=== PATIENT | female | born 1930 | race Caucasian/White ===

== ENCOUNTER 2017-04-02 15:18 | Observation (INO) ==
[2017-04-02] MEDS ORDERED: methylPREDNISolone 125 MG/2 ML VIAL IVP ONE (15:41)
[2017-04-02] MEDS ORDERED: Albuterol 2.5 MG/3 ML NEBULIZER IH ONE (15:42)
[2017-04-02 16:21] LABS: Hematocrit 35.2 % (35.3-44.9); Hemoglobin 11.3 g/dL (11.5-15.4); Mean Corpuscular HGB Conc 32.1 g/dL (31.6-35.5); Mean Corpuscular Hemoglobin 31.3 pg (28.0-33.3); Mean Corpuscular Volume 97.5 fL (83.0-100.0); Mean Platelet Volume 11.4 fL (9.4-12.4); Platelet Count 186 K/mcL (140-400); Red Blood Count 3.61 M/mcL (3.82-4.97); Red Cell Distribution Width 13.3 % (11.5-14.5)
--- NOTE | 2017-04-02 16:22 | Emergency Department Note ---
Disposition Clinical Impression: Dyspnea on exertion, Cough, Hypoxia Congestive heart failure Qualifiers: Congestive heart failure type: unspecified congestive heart failure type Congestive heart failure chronicity: unspecified congestive heart failure chronicity Qualified Code(s): I50.9 - Heart failure, unspecified Pneumonia Qualifiers: Pneumonia type: due to unspecified organism Laterality: left Lung location: lower lobe of lung Qualified Code(s): J18.1 - Lobar pneumonia, unspecified organism Disposition: Admitted As Inpatient Condition: Good Referrals: Lianet De La Rosa DO [Primary Care Provider] - Forms: ED Satisfaction Letter Time of Disposition: 20:10 SOB HPI - General Chief Complaint: ED Shortness of Breath/Dyspnea Stated Complaint: JOHN Time Seen by Provider: 04/02/17 15:30 Source: patient Mode of arrival: ambulatory Limitations: no limitations Nursing Notes Reviewed: Yes Vital Signs Reviewed: Yes - History of Present Illness Patient presents emergency room complaining of shortness of breath. She has had these symptoms on and off for the last several days. She was seen by an outside provider and they are concerned about her being fluid overloaded. Recommend she come to the emergency room. Patient has known congestive heart failure as well as multiple other medical issues. She denies any changes in medication, trauma, injuries. Denies any chest pain fevers chills nausea vomiting or diarrhea. Denies headache or vision change. Main complaint this time is that the patient has intermittent shortness of breath and swelling. Pt Subjective Complaint: shortness of breath, cough Onset (ago): day(s) Context: other Severity: moderate Consistency/Duration: gradually worsening Improves with: oxygen, rest, upright position Worsens with: lying flat, exertion, movement Known history of: COPD, congestive heart failure Associated symptoms: Reports: cough, orthopnea Treatment prior to arrival: oxygen Cough present: Yes Cough Description: Voluntary Cough Frequency: Intermittent Sputum production: No - Related Data Home Medications Medication Instructions Recorded Confirmed Albuterol Sulfate [Proair 2 puff IH Q6H 09/02/15 07/20/16 Respiclick] Aspirin 81 mg PO DAILY 09/02/15 07/20/16 Budesonide/Formoterol 80/4.5 1 puff IH BID 09/02/15 07/20/16 [Symbicort 80/4.5] Docusate [Colace] 100 mg PO DAILY 09/02/15 07/20/16 Escitalopram [Lexapro] 10 mg PO DAILY 09/02/15 07/20/16 Handicap Placard 1 each .ROUTE AD 09/02/15 07/20/16 Loratadine [Claritin] 10 mg PO DAILY 09/02/15 07/20/16 Saline Nasal [place] [[place] Nasal 0 ml NS AD 09/02/15 07/20/16 [place]] Warfarin [Coumadin] 2.5 mg PO DAILY 09/02/15 07/20/16 Bumetanide [Bumex] 1 mg PO BID 09/03/15 07/20/16 Carvedilol [Coreg] 6.25 mg PO BIDWM 09/03/15 07/20/16 Levalbuterol Neb [Xopenex] 1 aerosol IH Q6H 09/03/15 07/20/16 Valsartan [Diovan] 40 mg PO DAILY 09/03/15 07/20/16 Previous Rx's Medication Instructions Recorded Ferrous Sulfate 325 mg PO DAILY #30 tablet 10/08/15 Nystatin Cream [Mycostatin Cream] 1 appl TP BID #1 tube 07/06/16 Folic Acid 1 mg PO DAILY #90 tablet 09/16/16 Carbamide Peroxide 5 - 10 drop RIGHT EAR BID 4 Days 12/03/16 Allergies Allergy/AdvReac Type Severity Reaction Status Date / Time lisinopril Allergy Unknown Rash Verified 09/25/15 11:20 TERRELL Inhibitors Allergy Rash Verified 09/25/15 11:19 albuterol Allergy Rash Verified 09/25/15 11:21 unknown Allergy See Uncoded 07/09/15 19:37 Comments All systems ED: reviewed and negative except as stated. Constitutional: Denies: fever, chills ENT ED: Denies: ear pain Cardiovascular: Reports: dyspnea on exertion, orthopnea, edema. Denies: chest pain, palpitations Respiratory: Reports: cough, dyspnea. Denies: wheezes Gastrointestinal: Denies: abdominal pain, nausea, vomiting, diarrhea Genitourinary: Denies: urgency, dysuria, frequency Musculoskeletal: Denies: back pain, neck pain Neurological: Denies: headache, weakness Allergic/Immunologic: Denies: facial swelling Past Medical History - Past Medical History Attestation: Yes The following information was validated with the patient. Source: patient Medical history: Reports: atrial fibrillation, CHF, COPD, hypertension, malignancy, other Surgical history: Reports: cataract Psychiatric history: Reports: no psych history - Social History Smoking Status: Never smoker Smokeless Tobacco Status: No Alcohol use: Reports: none Drug use: Reports: none Physical Exam - General Limitations: no limitations General appearance: alert - Neck Neck exam: Present: normal inspection, full ROM, trachea midline. Absent: meningismus, lymphadenopathy - Chest Chest inspection: Present: normal inspection, symmetric chest wall rise. Absent : tenderness - Respiratory Respiratory exam: Present: normal lung sounds bilaterally. Absent: respiratory distress, wheezes, stridor, accessory muscle use - Cardiovascular Cardiovascular exam: Present: regular rate, normal rhythm, normal heart sounds - Abdominal Exam Abdominal exam: Present: soft, Non-Tender, normal bowel sounds. Absent: tenderness, distention, guarding, rebound, rigidity, pulsatile mass - Extremities Exam Extremities exam: Present: normal inspection, full ROM, normal capillary refill , pedal edema. Absent: tenderness, calf tenderness - Back Exam Back exam: Present: normal inspection, full ROM - Neurological Exam Neurological exam: Present: alert, oriented X3, CN II-XII intact, normal gait - Skin Skin exam: Present: warm, dry, intact, normal color Course Course Narrative: Patient seen and examined the time of arrival. See history of present illness. 86-year-old female presents here today with cough and increased work of breathing. She has a known CHF. There concern about fluid overload or possible pneumonia. Patient denies any fevers or chills nausea vomiting or diarrhea. Denies chest pain headache or vision change. Her main complaint is intermittent shortness of breath. Patient has noticed that she needed more oxygen at home. Physical exam and vital signs reviewed. She is intermittently hypoxic when she converses here. She is on her normal home oxygen at this time. Otherwise her vital signs appear to be stable. Patient is answering questions appropriately oropharynx is patent trach is midline there is no stridor no trismus. She has clear lungs bilaterally her heart is regular but not tachycardic. Abdomen is soft nontender nondistended with no guarding or rigidity. Patient was all 4 extremities with purpose she has mild pitting edema in the bilateral lower extremities with no redness swelling warmth or tenderness. Patient does have good palpable DP and PT pulses. Patient on physical exam is concerning for possible fluid overload even though focally her lungs do not do not sound wet. She does have a nonproductive cough that was present while is in the room evaluating her. Patient is concerning for possible pulmonary congestion, bronchitis, pneumonia and increased oxygen demand at this time. She was conversationally dyspneic and did become hypoxic even with oxygen on. Patient will have chest x-ray EKG labs including troponin and BNP. Single dose of Lasix will be given at this time. She is not focally presenting like she is septic at this point. Patient is clinically stable. Disposition pending workup and treatment course. - Reevaluation(s) Reevaluation #1: Patient has a mildly elevated white blood cell count. Hemoglobin is stable. Restoril as appeared within normal limits. She does have an elevated BNP today. Chest x-ray does not show any acute signs of pulmonary edema or consolidation. The patient's symptoms as well as her discomfort and hypoxia during my evaluation now CT imaging of the chest to make sure there is not an interstitial disease of his x-ray. CT imaging or this time. Patient I also discussed the admission process which I recommend after the workup is completed. She is comfortable with this plan. Disposition will be admission the hospital after the imaging studies are completed Time: 18:01 Reevaluation #2: CT angiogram will does not show any acute signs of pulmonary emboli. Patient does have what appears to be interstitial tree-in-bud formation left lower lobe of the lung. This is consistent with pneumonia. This accounts for the elevated white blood cell count as well as respiratory issues and hypoxia. I for the patient these findings ordered blood cultures first dose antibiotics and will get the patient minutes to the hospital at this time Time: 20:10 Reevaluation #3: Patient discussed with the hospitalist Dr. lockhart.no other srecommendations at this time. pt stable and ready for admission. Time: 20:31 Vital Signs Temperature 98.2 F 04/02/17 15:20 Pulse Rate 76 04/02/17 15:20 Respiratory Rate 20 04/02/17 15:20 Blood Pressure 174/56 04/02/17 15:20 O2 Sat by Pulse Oximetry 97 04/02/17 15:20 Temperature 98.2 F 04/02/17 15:20 Pulse Rate 89 04/02/17 19:37 Respiratory Rate 20 04/02/17 19:37 Blood Pressure 165/74 04/02/17 18:29 O2 Sat by Pulse Oximetry 96 04/02/17 19:37 Oxygen Delivery Oxygen Delivery Nasal Cannula Shortness of Breath/Dyspnea - [facility] Narrative Medical decision making narrative: COPD, congestive heart failure, nonproductive cough, pneumonia - Medical Records Medical records reviewed: Yes I reviewed the patient's medical records. - Lab Data Lab results reviewed: Yes I reviewed the patient's lab results. Result diagrams: 04/02/17 16:13 04/02/17 16:13 Lab Results 04/02/17 04/02/17 04/02/17 Range/Units 16:13 16:13 16:13 WBC 15.2 H (4.3-11.1) K/mcL RBC 3.61 L (3.82-4.97) M/mcL Hgb 11.3 L (11.5-15.4) g/dL Hct 35.2 L (35.3-44.9) % MCV 97.5 (83.0-100.0) fL MCH 31.3 (28.0-33.3) pg MCHC 32.1 (31.6-35.5) g/dL RDW 13.3 (11.5-14.5) % Plt Count 186 (140-400) K/mcL MPV 11.4 (9.4-12.4) fL Seg Neutrophils % 66.0 % Band Neutrophils % 3.0 (0-4) % Lymphocytes % 21.0 % Monocytes % 9.0 % Basophils % 1.0 % Neutrophils # 10.5 H (1.6-8.9) K/mcL Lymphocytes # 3.2 (0.6-4.6) K/mcL Monocytes # 1.4 H (0.0-1.3) K/mcL Basophils # 0.2 (0.0-0.2) K/mcL Reactive Lymphocytes Present A (Not Present) Smudge Cells Present A (Not Present) Platelet Estimate Normal (Normal) Sodium 137 (136-145) mEq/L Potassium 4.3 (3.5-4.5) mEq/L Chloride 95 L (98-109) mEq/L Carbon Dioxide 33 H (19-29) mEq/L BUN 19 (7-20) mg/dL Creatinine 0.85 (0.57-1.11) mg/dL Est GFR ( Amer) > 60 (> 60) Est GFR (Non-Af Amer) > 60 (> 60) BUN/Creatinine Ratio 22 (6-26) Glucose 101 H (70-99) mg/dL Calculated Osmolality 286 (280-300) Lactic Acid 1.0 (0.5-2.2) mmol/L Calcium 9.3 (8.6-10.8) mg/dL Troponin I (0-0.03) ng/mL B-Natriuretic Peptide (0-100) pg/mL Urine Color (Yellow) Urine Clarity (Clear) Urine pH (5.0-8.0) pH Units Ur Specific [place] (1.010-1.025) Urine Protein (Neg-Trace) mg/dL Urine Glucose (UA) (Normal) mg/dL Urine Ketones (Negative) mg/dL Urine Blood (Negative) Urine Nitrite (Negative) Urine Bilirubin (Negative) Urine Urobilinogen (Normal) mg/dL Ur Leukocyte Esterase (Negative) Urine Microscopic RBC (0-3) per hpf Urine Microscopic WBC (0-3) per hpf Ur Squamous Epith Cells (None-Few) per lpf Urine Bacteria (None-Few) per hpf Hyaline Casts (None-Few) per lpf Ur Culture Indicated? (NO) 04/02/17 04/02/17 04/02/17 Range/Units 16:13 16:13 16:43 WBC (4.3-11.1) K/mcL RBC (3.82-4.97) M/mcL Hgb (11.5-15.4) g/dL Hct (35.3-44.9) % MCV (83.0-100.0) fL MCH (28.0-33.3) pg MCHC (31.6-35.5) g/dL RDW (11.5-14.5) % Plt Count (140-400) K/mcL MPV (9.4-12.4) fL Seg Neutrophils % % Band Neutrophils % (0-4) % Lymphocytes % % Monocytes % % Basophils % % Neutrophils # (1.6-8.9) K/mcL Lymphocytes # (0.6-4.6) K/mcL Monocytes # (0.0-1.3) K/mcL Basophils # (0.0-0.2) K/mcL Reactive Lymphocytes (Not Present) Smudge Cells (Not Present) Platelet Estimate (Normal) Sodium (136-145) mEq/L Potassium (3.5-4.5) mEq/L Chloride (98-109) mEq/L Carbon Dioxide (19-29) mEq/L BUN (7-20) mg/dL Creatinine (0.57-1.11) mg/dL Est GFR ( Amer) (> 60) Est GFR (Non-Af Amer) (> 60) BUN/Creatinine Ratio (6-26) Glucose (70-99) mg/dL Calculated Osmolality (280-300) Lactic Acid (0.5-2.2) mmol/L Calcium (8.6-10.8) mg/dL Troponin I 0.00 (0-0.03) ng/mL B-Natriuretic Peptide 169 H (0-100) pg/mL Urine Color Yellow (Yellow) Urine Clarity Clear (Clear) Urine pH 7.0 (5.0-8.0) pH Units Ur Specific [place] 1.011 (1.010-1.025) Urine Protein Negative (Neg-Trace) mg/dL Urine Glucose (UA) Normal (Normal) mg/dL Urine Ketones Negative (Negative) mg/dL Urine Blood Moderate H (Negative) Urine Nitrite Negative (Negative) Urine Bilirubin Negative (Negative) Urine Urobilinogen Normal (Normal) mg/dL Ur Leukocyte Esterase Small H (Negative) Urine Microscopic RBC 15-30 H (0-3) per hpf Urine Microscopic WBC 3-5 H (0-3) per hpf Ur Squamous Epith Cells Moderate H (None-Few) per lpf Urine Bacteria None Seen (None-Few) per hpf Hyaline Casts None Seen (None-Few) per lpf Ur Culture Indicated? YES A (NO) - Radiology Data Radiology results reviewed: Yes I reviewed the patient's radiology results. Chest x-ray is negative for acute infiltrate or pulmonary congestion. CT imaging does show tree-in-bud formation left lower lobe along the pulmonary emboli see detailed documentation by the radiologist - EKG Data EKG attestation: Yes I reviewed and interpreted this EKG. EKG shows normal: Reports: sinus rhythm, axis, intervals, QRS complexes, ST-T waves Rate: Reports: normal Rhythm: Reports: NSR, PAC's [place]/QRS: Reports: normal When compared to previous EKG there are: no significant changes Interpretation: Reports: no acute changes, unchanged when compared to prior tracing (date) (07/06/16)
[2017-04-02 16:41] LABS: BUN/Creatinine Ratio 22 (6-26); Basophils # 0.2 K/mcL (0.0-0.2); Blood Urea Nitrogen 19 mg/dL (7-20); Calcium 9.3 mg/dL (8.6-10.8); Carbon Dioxide 33 mEq/L (19-29); Chloride 95 mEq/L (98-109); Glucose 101 mg/dL (70-99); Lymphocytes # 3.2 K/mcL (0.6-4.6); Monocytes # 1.4 K/mcL (0.0-1.3); Neutrophils # 10.5 K/mcL (1.6-8.9); Osmolality,Calculated 286 (280-300); Platelet Estimate Normal (Normal); Potassium 4.3 mEq/L (3.5-4.5); Reactive Lymphocytes Present (Not Present); Smudge Cells Present (Not Present); Sodium 137 mEq/L (136-145); eGFR For African Americans > 60 (> 60); eGFR For Non-African Americans > 60 (> 60)
[2017-04-02 16:50] LABS: Bilirubin,Urine Negative (Negative); Blood,Urine Moderate (Negative); Clarity,Urine Clear (Clear); Color,Urine Yellow (Yellow); Glucose,Urine (UA) Normal (Normal); Ketones,Urine Negative (Negative); Leukocyte Esterase,Urine Small (Negative); Nitrite,Urine Negative (Negative); Protein,Urine Negative (Neg-Trace); Specific Gravity,Urine 1.011 (1.010-1.025); Urobilinogen,Urine Normal (Normal)
[2017-04-02 16:52] LABS: Bacteria,Urine None Seen per hpf (None-Few); Hyaline Casts,Urine None Seen per lpf (None-Few); RBC,Urine 15-30 per hpf (0-3); Squamous Epithelial Cell,Urine Moderate per lpf (None-Few)
[2017-04-02] MEDS ORDERED: Furosemide 40 MG in 0.9 % Sodium Chloride 50 ML IVPB ONE (17:57)
[2017-04-02] MEDS ORDERED: Levofloxacin 750 MG/150 ML 750 MG/150 ML BAG IVPB ONE (19:56)
[2017-04-02] MEDS ORDERED: Acetaminophen 325 MG TABLET PO PRN (21:44)
[2017-04-02] MEDS ORDERED: Naloxone 0.4 MG/ML INJ IVP PRN (21:44)
[2017-04-02] MEDS ORDERED: Ipratropium/Albuterol Neb 3 ML IH PRN (21:47)
--- NOTE | 2017-04-02 21:53 | Internal Med History&Physical ---
Date of Encounter: 04/02/17 Time of Encounter: 21:30 Assessment and Plan (1) Acute and chronic respiratory failure Current visit: Yes Status: Acute Patient presented with increased shortness of breath in the setting of known pneumonia superimposed on chronic COPD with home baseline of 2 L oxygen. Plan: - Treat underlying pneumonia. - Patient started on Levaquin for community acquired pneumonia Qualifiers: Respiratory failure complication: unspecified whether with hypoxia or hypercapnia Qualified Code(s): J96.20 - Acute and chronic respiratory failure , unspecified whether with hypoxia or hypercapnia (2) Pneumonia Current visit: Yes Status: Acute Patient presented with progressive shortness of breath from her baseline, cough , productive green sputum. Chest x-ray did not demonstrate any findings of consolidation. Chest CTA demonstrated tree-in-bud pattern or left lower lobe. WBC of 15 which correlates with clinical presentation of respiratory infection. Plan: - Continue treatment with Levaquin for antibiotic coverage - Continue breathing treatments - Continue baseline 2 L nasal cannula oxygen and adjust as necessary. Qualifiers: Pneumonia type: due to unspecified organism Laterality: left Lung location: lower lobe of lung Qualified Code(s): J18.1 - Lobar pneumonia, unspecified organism (3) CLL (chronic lymphocytic leukemia) Current visit: No Status: Chronic Known history of CLL, stable. (4) Congestive heart failure Current visit: Yes Status: Acute 86-year-old female with last echocardiogram demonstrating LVEF of 50-55%. With severe diastolic dysfunction. - Clinically euvolemic. - Cardiac diet - Strict intake and output monitoring, daily weights - 2 g sodium restriction Qualifiers: Congestive heart failure type: unspecified congestive heart failure type Congestive heart failure chronicity: unspecified congestive heart failure chronicity Qualified Code(s): I50.9 - Heart failure, unspecified (5) Atrial fibrillation Current visit: Yes Status: Acute Patient has a baseline nature fibrillation, apparent on EKG. Clinical examination correlates. Plan: - Continue rate control with Coreg - Obtain PT/INR - Continue anticoagulation with warfarin therapy: Range INR of 2-3 Qualifiers: Qualified Code(s): I48.91 - Unspecified atrial fibrillation Internal Medicine - H&P: HPI Chief complaint: sob Admitted From: Emergency Dept History of present illness: Ms. Sheppard is a 86 year old female known history of COPD, heart failure, CLL, hypertension, hyperlipidemia, coronary artery disease, atrial fibrillation presented with shortness of breath. This Sheppard said that she started having shortness of breath and a productive cough starting on Tuesday which progressively got worse until Tuesday when she went to her primary care provider for evaluation. She is provided Tessalon Perles and Flonase without any resolution of her symptoms. She became more short of breath as the days went on more so with activity, her sputum turned green in color and she overall felt lethargic with decreased appetite. She uses her inhalers as prescribed and has not had an increase in use. She has been taking her medications as prescribed. 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 She denies any associated fevers, chills, diaphoresis. She has been receiving treatment for her CLL. Past Med Surg Social Fam HX - Past Medical History Medical history: atrial fibrillation, CHF, COPD, hypertension, malignancy, other Psychiatric history: no psych history - Past Surgical History Surgical History: cataract - Social History Smoking Status: Never smoker Smokeless Tobacco Status: No Alcohol use: none Drug use: none - Family History Mother Race: Living Status: Hx Family Cardiac Disorders: Yes (Heart disease, heart failure) Father Race: Living Status: Hx Family Cardiac Disorders: Yes (MA) Hx Family Cancer: Yes (CLL) Internal Medicine - H&P: Meds Albuterol Sulfate [Proair [place]ic[place]] 2 puff IH Q6H 09/02/15 [History] Aspirin 81 mg PO DAILY 09/02/15 [History] Budesonide/Formoterol 80/4.5 [Symbicort 80/4.5] 1 puff IH BID 09/02/15 [History ] Docusate [Colace] 100 mg PO DAILY 09/02/15 [History] Escitalopram [Lexapro] 10 mg PO DAILY 09/02/15 [History] Handicap Placard 1 each .ROUTE AD 09/02/15 [History] Loratadine [Claritin] 10 mg PO DAILY 09/02/15 [History] Saline Nasal [place] [[place] Nasal [place]] 0 ml NS AD 09/02/15 [History] Warfarin [Coumadin] 2.5 mg PO DAILY 09/02/15 [History] Bumetanide [Bumex] 1 mg PO BID 09/03/15 [History] Carvedilol [Coreg] 3.125 mg PO BIDWM 09/03/15 [History] Levalbuterol Neb [Xopenex] 1 aerosol IH Q6H 09/03/15 [History] Valsartan [Diovan] 40 mg PO DAILY 09/03/15 [History] Ferrous Sulfate 325 mg PO DAILY #30 tablet 10/08/15 [Rx] Nystatin Cream [Mycostatin Cream] 1 appl TP BID #1 tube 07/06/16 [Rx] Folic Acid 1 mg PO DAILY #90 tablet 09/16/16 [Rx] Carbamide Peroxide 5 - 10 drop RIGHT EAR BID 4 Days 12/03/16 [Rx] Budesonide/Formoterol 80/4.5 [Symbicort] 2 puff IH BID 04/02/17 [History] Multivit-Min/FA/Lutein/Zeaxant [Icaps Mv Tablet] 1 each PO DAILY 04/02/17 [ History] Omeprazole [PriLOSEC] 20 mg PO DAILY 04/02/17 [History] Allergies lisinopril Allergy (Unknown, Verified 09/25/15 11:20) Rash TERRELL Inhibitors Allergy (Verified 09/25/15 11:19) Rash albuterol Allergy (Verified 09/25/15 11:21) Rash unknown Allergy (Uncoded 07/09/15 19:37) See Comments All Systems PM: A 10-system review of systems was performed and is negative for pertinent findings except as documented above in the HPI. - Constitutional Constitutional: lethargy, malaise, no chills, no fever(s), no night sweats - EENT Eyes: no change in vision, no discharge, no pain, no photophobia Ears: no ear discharge, no ear pain, no tinnitus Nose, mouth and throat: post-nasal drip, no dysphagia, no nasal discharge, no neck pain, no sore throat - Cardiovascular Cardiovascular ROS IM: no chest pain, no diaphoresis, no dyspnea, no lightheadedness, no palpitations, no syncope - Respiratory Respiratory: cough, dyspnea, chest congestion, excessive phlegm production, change in phlegm color, no wheezing - Gastrointestinal Gastrointestinal: no abdominal pain, no diarrhea, no hematemesis, no hematochezia, no melena, no nausea, no vomiting - Genitourinary Genitourinary: no change in urinary stream, no dysuria, no flank pain, no hematuria - Musculoskeletal Musculoskeletal ROS IM: no numbness, no tingling - Integumentary Integumentary IM: no rash, no unusual bruising - Neurological Neurological ROS: no confusion, no convulsions, no focal weakness, no numbness, no tingling, no tremor(s) - Hematologic/Lymphatic Hematologic/Lymphatic: no easy bruising - Constitutional Vitals: Temp Pulse Resp BP Pulse Ox 98.2 F 79 18 145/73 95 04/02/17 15:20 04/02/17 20:48 04/02/17 21:10 04/02/17 21:10 04/02/17 20:48 Exam: General: Patient alert, awake, oriented 3, interactive, in no acute distress HEENT: Normocephalic, atraumatic, pupils equal reactive to light, nasal cavity patent and open septum median position, oral mucosa moist, uvula midline, neck supple trachea midline no palpable lymphadenopathy, no thyromegaly. Chest: Symmetric bilateral correlating with respiratory effort, effort nonlabored. Cardiac: Irregularly irregular heart rate and rhythm no bruits appreciated bilateral carotids, Radial pulses 2+ bilateral, posterior tibial and dorsal pedal pulses 2+ bilateral. Respiratory: Diminished breath sounds with inspiratory crackles lower left lung base, all other lung rhodes are clear to auscultation. Abdomen: Soft, nontender, positive bowel sounds, no palpable masses appreciated on examination Extremities: Symmetric bilateral, bilateral lower extremities trace edema, patient moving all 4 extremities spontaneously. Neurologic: No focal deficits appreciated on examination. Face symmetric, muscle strength symmetric bilateral upper and lower extremities. Internal Med - H&P Results - Labs CBC & Chem 7: 04/03/17 04:24 04/02/17 16:13
[2017-04-02] MEDS ORDERED: *HR* Heparin 5,000 UNIT/ML VIAL SQ SCH (22:00)
--- NOTE | 2017-04-02 22:27 | Event Note ---
Date of Encounter: 04/02/17 Time of Encounter: 22:27 Patient and examined with biomedical engineering aide. Acquired pneumonia. Casimiroaquin. She is on 2L of oxygen which is our baseline. She told me that she would like to be full code.
[2017-04-02] MEDS: Budesonide/Formoterol 80/4.5 MDI IH SCH (22:50)
[2017-04-03 04:47] LABS: Basophils % 0.1 %; Hematocrit 34.6 % (35.3-44.9); Hemoglobin 11.4 g/dL (11.5-15.4); Immature Granulocytes % 0.3 % (0-4); Lymphocytes # 7.6 K/mcL (0.6-4.6); Lymphocytes % 51.5 %; Mean Corpuscular HGB Conc 32.9 g/dL (31.6-35.5); Mean Corpuscular Hemoglobin 31.8 pg (28.0-33.3); Mean Corpuscular Volume 96.6 fL (83.0-100.0); Mean Platelet Volume 11.9 fL (9.4-12.4); Monocytes # 1.3 K/mcL (0.0-1.3); Neutrophils # 5.8 K/mcL (1.6-8.9); Platelet Count 191 K/mcL (140-400); Red Blood Count 3.58 M/mcL (3.82-4.97); Red Cell Distribution Width 13.2 % (11.5-14.5); Segmented Neutrophils % 39.1 %
[2017-04-03 04:52] LABS: INR 2.6; Prothrombin Time 29.2 Seconds (9.4-12.1)
[2017-04-03 05:05] LABS: BUN/Creatinine Ratio 23 (6-26); Blood Urea Nitrogen 20 mg/dL (7-20); Carbon Dioxide 34 mEq/L (19-29); Chloride 97 mEq/L (98-109); Glucose 177 mg/dL (70-99); Osmolality,Calculated 291 (280-300); Potassium 4.1 mEq/L (3.5-4.5); Sodium 137 mEq/L (136-145); eGFR For African Americans > 60 (> 60); eGFR For Non-African Americans > 60 (> 60)
[2017-04-03 05:06] LABS: Platelet Estimate Normal (Normal); Reactive Lymphocytes Present (Not Present)
[2017-04-03] MEDS: Aspirin 81 MG TAB.CHEW PO SCH (08:00)
[2017-04-03] MEDS: Valsartan 80 MG TABLET PO SCH (08:01)
[2017-04-03] MEDS: Bumetanide 1 MG TABLET PO SCH ×2 (08:01→19:54)
[2017-04-03] MEDS ORDERED: Pantoprazole 40 MG VIAL IVP SCH (09:00)
[2017-04-03] MEDS: Budesonide/Formoterol 80/4.5 MDI IH SCH ×2 (10:48→20:18)
--- NOTE | 2017-04-03 15:31 | Internal Med Progress Note ---
<Guillermo Boyd - Last Filed: 04/03/17 15:56> Date of Encounter: 04/03/17 Time of Encounter: 11:20 - Assessment and plan (1) Community acquired pneumonia Current Visit: Yes Status: Acute Assessment and plan: Given the patients clinical presentation and imaging findings I would agree that this is a community acquired pneumonia. she is at high risk for poor outcome given her advanced age and her chronic lung disease. I calculate her PSI to be 96/ Class 4. Given the appearence of the CT I agree that Levofloxacin would be a good choice of antibiotics. We will continue. Currently on 2L of O2. currently dose not meet SIRS criteria. Blood and urine cultures were sent. I will order sputum as well. Continue to monitor closely. (2) Congestive heart failure Current Visit: Yes Status: Chronic Assessment and plan: Patient has severe Diastolic dysfunction. May be related to age? However given her granulomas in the lung would consider infiltrative disorder such as Sarcoidosis. Will check a Vitamin D 1, 25 as macrophages from granulomas in sarcoid can over produce Vit D 1,25. Check an TERRELL. Patient has low AG. Amyloidosis? check SPEP. If patient develops worsening HF or heart block may consider Cardiac MRI in the future. currently the patient is euvolemic. Continue home dose of bumex monitor I's O's closely. Low salt diet. Blood pressure control. Will consider adding aldactone. however this will need to be follow closely as an outpatient. Qualifiers: Congestive heart failure type: diastolic Qualified Code(s): I50.30 - Unspecified diastolic (congestive) heart failure (3) Current use of fci anticoagulation Current Visit: Yes Status: Acute Assessment and plan: currently on Coumadin. She was placed on coumadin on admission. We will need to follow INR closely as this can sometimes affect the therapeutic levels. (4) COPD (chronic obstructive pulmonary disease) Current Visit: Yes Status: Acute Assessment and plan: currently dose not seem to be in exacerbation clinically. However dose have some mild wheezing. Add Xopenex. Qualifiers: Qualified Code(s): J44.9 - Chronic obstructive pulmonary disease, unspecified (5) Obesity Current Visit: Yes Status: Suspected Assessment and plan: Suspected. Current BMI recorded as 16. I believe this to be in error and will have event staff weigh the patient again. Qualifiers: Qualified Code(s): E66.9 - Obesity, unspecified (6) CLL (chronic lymphocytic leukemia) Current Visit: No Status: Chronic Assessment and plan: stable. (7) Acute and chronic respiratory failure Current Visit: Yes Status: Acute Assessment and plan: stable. on Home dose of 2L. Qualifiers: Respiratory failure complication: unspecified whether with hypoxia or hypercapnia Qualified Code(s): J96.20 - Acute and chronic respiratory failure , unspecified whether with hypoxia or hypercapnia (8) Atrial fibrillation Current Visit: Yes Status: Acute Assessment and plan: currently rate controlled. continue coumadin Qualifiers: Qualified Code(s): I48.91 - Unspecified atrial fibrillation (9) Abnormal urinalysis Current Visit: Yes Status: Acute Assessment and plan: suggestive of UTI. However appears contaminated. follow up with cultures. On Levofloxacin for CAP. (10) DVT prophylaxis Current Visit: Yes Status: Acute Assessment and plan: Coumadin - Subjective Interval history: Today Mrs. Sheppard states that she is feeling some better. She denies having any fever or chills. She dose admit to malaise. She denies any sick contacts.. She denies any pets at home. She states that she still has some exertional dyspna. She has a productive cough ( yellow/ Green) and some wheezing. She has no further complaints or concerns at this time. Her Son and Daughter are present during the interview and they confirm the above. - Constitutional Vitals: Temp Pulse Resp BP Pulse Ox 98.2 F 82 17 142/67 94 04/03/17 13:08 04/03/17 13:08 04/03/17 13:08 04/03/17 13:08 04/03/17 13:08 Exam: Gen.: This is a very pleasant well-developed well-nourished 86-year-old female she is alert and orientated to person place time and situation. She is lying in bed appears to be comfortable and in no acute distress at this time. HEENT: The head is normocephalic and atraumatic. Pupils are equally round. Moist mucous membranes. Trachea midline. Neck is supple without masses thyromegaly. Heart: Irregular irregular rate of approximately 80 while examining the patient. There is no murmurs rubs or gallops. No JVD. No heave or thrill with palpation of the precordium. Lungs: She has a normal effort of breathing. Normal resonance Ms. of the chest wall bilaterally. She does have some mild wheezes and rhonchi in the right upper and mid lung rhodes. Abdomen: Obese, soft, nondistended, nontender to palpation. Bowel sounds positive. Extremities: No clubbing cyanosis or edema. Integument: No rashes or lesions. Internal Medicine: Result - Labs CBC & Chem 7: 04/03/17 04:24 04/03/17 04:24 Labs: Short CBC 04/03/17 Range/Units 04:24 WBC 14.8 H (4.3-11.1) K/mcL Hgb 11.4 L (11.5-15.4) g/dL Hct 34.6 L (35.3-44.9) % Plt Count 191 (140-400) K/mcL Neutrophils # 5.8 (1.6-8.9) K/mcL BMP 04/03/17 04:24 Sodium 137 Potassium 4.1 Chloride 97 L Carbon Dioxide 34 H BUN 20 Creatinine 0.86 Glucose 177 H Calcium 9.0 - ABG Interpretation ABG results: PT/INR, D-dimer PT 29.2 Seconds (9.4-12.1) H 04/03/17 04:24 Consult Discharge Plan - Plan Referrals: Lianet De La Rosa DO [Primary Care Provider] - <Ezra Tabor - Last Filed: 04/03/17 19:27> Date of Encounter: 04/03/17 - Constitutional Vitals: Temp Pulse Resp BP Pulse Ox 98.7 F 81 16 145/65 95 04/03/17 18:55 04/03/17 18:55 04/03/17 18:55 04/03/17 18:55 04/03/17 18:55 Internal Medicine: Result - Labs CBC & Chem 7: 04/03/17 04:24 04/03/17 04:24 Labs: Short CBC 04/03/17 Range/Units 04:24 WBC 14.8 H (4.3-11.1) K/mcL Hgb 11.4 L (11.5-15.4) g/dL Hct 34.6 L (35.3-44.9) % Plt Count 191 (140-400) K/mcL Neutrophils # 5.8 (1.6-8.9) K/mcL BMP 04/03/17 04:24 Sodium 137 Potassium 4.1 Chloride 97 L Carbon Dioxide 34 H BUN 20 Creatinine 0.86 Glucose 177 H Calcium 9.0 - ABG Interpretation ABG results: PT/INR, D-dimer PT 29.2 Seconds (9.4-12.1) H 04/03/17 04:24 - Attending Attestation I examined this patient and my medical decision-making was reviewed with the Resident Physician, Dr. Boyd. I agree with the documented findings, disposition and treatment plan as described except to the extent set forth below. we will monitor INR daily and adjust Coumadin being mindful of the potential interaction with Levaquin.
[2017-04-03] MEDS: Levalbuterol Neb 0.63 MG/3 ML IH SCH ×2 (16:20→20:18)
[2017-04-03] MEDS ORDERED: Warfarin perPT PO PRN (18:00)
[2017-04-03] MEDS ORDERED: *HR* Warfarin 5 MG TABLET PO SCH (18:00)
[2017-04-03] MEDS: Loratadine 10 MG TABLET PO SCH (19:54)
[2017-04-04] MEDS: Levalbuterol Neb 0.63 MG/3 ML IH SCH ×3 (03:34→16:09)
[2017-04-04 04:00] LABS: Basophils % 0.3 %; Eosinophils # 0.1 K/mcL (0.0-0.6); Eosinophils % 0.4 %; Hematocrit 34.7 % (35.3-44.9); INR 2.1; Immature Granulocytes % 0.5 % (0-4); Lymphocytes % 54.7 %; Mean Corpuscular HGB Conc 31.7 g/dL (31.6-35.5); Mean Corpuscular Hemoglobin 30.9 pg (28.0-33.3); Mean Corpuscular Volume 97.5 fL (83.0-100.0); Mean Platelet Volume 11.8 fL (9.4-12.4); Monocytes # 1.7 K/mcL (0.0-1.3); Monocytes % 11.4 %; Neutrophils # 4.8 K/mcL (1.6-8.9); Platelet Count 176 K/mcL (140-400); Prothrombin Time 23.1 Seconds (9.4-12.1); Red Blood Count 3.56 M/mcL (3.82-4.97); Red Cell Distribution Width 13.3 % (11.5-14.5); Segmented Neutrophils % 32.7 %
[2017-04-04 04:11] LABS: BUN/Creatinine Ratio 23 (6-26); Blood Urea Nitrogen 21 mg/dL (7-20); Calcium 8.9 mg/dL (8.6-10.8); Carbon Dioxide 34 mEq/L (19-29); Chloride 98 mEq/L (98-109); Glucose 117 mg/dL (70-99); Osmolality,Calculated 294 (280-300); Potassium 3.8 mEq/L (3.5-4.5); Sodium 140 mEq/L (136-145); eGFR For African Americans > 60 (> 60); eGFR For Non-African Americans 59 (> 60)
[2017-04-04 04:28] LABS: Platelet Estimate Normal (Normal); Reactive Lymphocytes Present (Not Present)
[2017-04-04] MEDS: Bumetanide 1 MG TABLET PO SCH (07:54)
[2017-04-04] MEDS: Loratadine 10 MG TABLET PO SCH (07:54)
[2017-04-04] MEDS: Valsartan 80 MG TABLET PO SCH (07:54)
[2017-04-04] MEDS: Aspirin 81 MG TAB.CHEW PO SCH (07:55)
--- NOTE | 2017-04-04 08:42 | Discharge Summary ---
<Pepe Eubanks - Last Filed: 04/04/17 17:52> Date of Encounter: 04/04/17 Time of Encounter: 08:41 - Discharge Diagnosis (1) Community acquired pneumonia Priority: Primary Status: Acute Comments: She is at high risk for poor outcome given her advanced age and her chronic lung disease. I calculate her PSI to be 96/ Class 4. Continue oral Levofloxacin for 1 week upon discharge. Adjust Coumadin dose secondary to Levaquin use Currently on 2L of O2. Continue incentive spirometry Blood, sputum, and urine cultures pending Patient evaluated by PT/OT. Recommend return to home with no home health at this time. (2) Anemia Priority: Secondary Status: Chronic Comments: Stable. Continue to monitor Qualifiers: Anemia type: unspecified type Qualified Code(s): D64.9 - Anemia, unspecified (3) CLL (chronic lymphocytic leukemia) Priority: Secondary Status: Chronic Comments: Continue to monitor outpatient. (4) Congestive heart failure Priority: Secondary Status: Acute Comments: Patient has severe Diastolic dysfunction. However given her granulomas in the lung would consider infiltrative disorder such as Sarcoidosis. Will check a Vitamin D 1, 25 as macrophages from granulomas in sarcoid can over produce Vit D 1,25. Check an TERRELL. Patient has low AG. Amyloidosis? check SPEP. If patient develops worsening HF or heart block may consider Cardiac MRI in the future. currently the patient is euvolemic. Continue home dose of bumex monitor I's O's closely. Low salt diet. Blood pressure control. Will consider adding aldactone. however this will need to be follow closely as an outpatient. Qualifiers: Congestive heart failure type: diastolic Congestive heart failure chronicity: chronic Qualified Code(s): I50.32 - Chronic diastolic (congestive ) heart failure (5) Hypoxia Priority: Primary Status: Acute Comments: Currently on 2L of O2 at home. Continue albuterol (6) Acute and chronic respiratory failure Priority: Primary Status: Acute Comments: Currently on 2L of O2. Continue antibiotics, albuterol, and incentive spirometry Qualifiers: Respiratory failure complication: hypoxia and hypercapnia Qualified Code(s) : J96.21 - Acute and chronic respiratory failure with hypoxia; J96.22 - Acute and chronic respiratory failure with hypercapnia (7) Current use of long-term anticoagulation Priority: Primary Status: Acute Comments: currently on Coumadin. She is also on Levaquin for 1 week. Follow INR closely as this can affect the therapeutic levels. (8) COPD (chronic obstructive pulmonary disease) Priority: Primary Status: Chronic Comments: currently dose not seem to be in exacerbation clinically. However dose have some mild wheezing. Added Xopenex. Qualifiers: COPD type: COPD with acute lower respiratory infection Qualified Code(s): J44.0 - Chronic obstructive pulmonary disease with acute lower respiratory infection (9) Obesity, morbid, BMI 40.0-49.9 Priority: Secondary Status: Acute Comments: Discussed diet modification and exercise (10) DVT prophylaxis Priority: Primary Status: Acute Comments: Decrease Coumadin dose or 1 week secondary to current Levaquin use Patient seen and examined, plan discussed with and agreed upon with Dr. Tabor - Discharge Medications Prescriptions: levoFLOXacin [Levaquin] 750 mg PO DAILY #7 tablet Warfarin [Coumadin] 5 mg PO MOWE 7 Days Home Medications: Aspirin 81 mg PO DAILY 09/02/15 [History] Docusate [Colace] 100 mg PO DAILY 09/02/15 [History] Escitalopram [Lexapro] 10 mg PO DAILY 09/02/15 [History] Loratadine [Claritin] 10 mg PO DAILY 09/02/15 [History] Warfarin [Coumadin] 2.5 mg PO FR 09/02/15 [History] Bumetanide [Bumex] 1 mg PO BID 09/03/15 [History] Carvedilol [Coreg] 3.125 mg PO BIDWM 09/03/15 [History] Levalbuterol Neb [Xopenex] 1 aerosol IH Q6H 09/03/15 [History] Valsartan [Diovan] 40 mg PO DAILY 09/03/15 [History] Ferrous Sulfate 325 mg PO DAILY #30 tablet 10/08/15 [Rx] Folic Acid 1 mg PO DAILY #90 tablet 09/16/16 [Rx] Budesonide/Formoterol 80/4.5 [Symbicort] 2 puff IH BID 04/02/17 [History] Multivit-Min/FA/Lutein/Zeaxant [Icaps Mv Tablet] 1 each PO DAILY 04/02/17 [ History] Omeprazole [PriLOSEC] 20 mg PO DAILY 04/02/17 [History] Benzonatate [Tessalon] 100 mg PO TID PRN 04/03/17 [History] Fluticasone Propionate Nasal [Flonase] 2 spr NS DAILY PRN 04/03/17 [History] Warfarin [Coumadin] 5 mg PO SUTUTHSA 04/03/17 [History] Warfarin [Coumadin] 5 mg PO MOWE 7 Days 04/04/17 [Rx] levoFLOXacin [Levaquin] 750 mg PO DAILY #7 tablet 04/04/17 [Rx] Allergies/Adverse Reactions: Allergies lisinopril Adverse Reaction (Unknown, Verified 04/03/17 15:05) Rash TERRELL Inhibitors Adverse Reaction (Verified 04/03/17 15:05) Rash albuterol Adverse Reaction (Verified 04/03/17 15:05) Palpitations Date of admission: 04/02/17 20:55 Primary care physician: Lianet De La Rosa DO Discharging clinician: Ezra Tabor Anticipated date of discharge: 04/04/17 - Patient Status Disposition: Home, Self-Care Condition: Good Functional capacity at discharge: independent ambulation Overall status at discharge: patient is progressing back to baseline - Discharge Instructions Instructions: Levofloxacin (By mouth), Bacterial Pneumonia (DC) Follow Up With: Lianet De La Rosa DO [Primary Care Provider] - 04/11/17 1:00 pm - Diet and Activity Activity: increase activity as tolerated Diet: low salt diet Hospital course: Ms. Sheppard is a 86 year old female known history of COPD, diastolic heart failure , CLL, hypertension, hyperlipidemia, coronary artery disease, and atrial fibrillation who presented with shortness of breath. Shortness of breath and a productive cough starting on Tuesday which progressively got worse until Tuesday when she went to her primary care provider for evaluation. She is provided Tessalon Perles and Flonase without any resolution of her symptoms. She became more short of breath as the days went on more so with activity, her sputum turned green in color and she overall felt lethargic with decreased appetite. She uses her inhalers as prescribed and has not had an increase in use. She has been taking her medications as prescribed. 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 She denies any associated fevers, chills , diaphoresis. She has been receiving treatment for her CLL. Chest x-ray did not demonstrate any findings of consolidation. Chest CTA demonstrated tree-in- bud pattern or left lower lobe. WBC of 15 which correlates with clinical presentation of respiratory infection. Patient started on Levaquin for community acquired pneumonia, DuoNeb's, and incentive spirometry was encouraged. Continue baseline 2 L nasal cannula oxygen and adjust as necessary. Patient was much improved on hospital day 3 and reported she is back to baseline with significantly decreased shortness of breath. Patient discharged with by mouth Levaquin and home dose of Coumadin was decreased. patient instructed to follow up with PCP in 1 week for a repeat INR level - Time Spent with Patient Total time spent providing and/or coordinating discharge services: - Constitutional Vitals: Temp Pulse Resp BP Pulse Ox 97.7 F 79 16 164/78 96 04/04/17 08:39 04/04/17 08:39 04/04/17 08:39 04/04/17 08:39 04/04/17 08:39 General appearance: Present: cooperative, A&O X 3, morbidly obese, pleasant, no acute distress - Head Head exam: Present: atraumatic, normocephalic - Eye Eye exam: Present: PERRL, conjuntiva pink, sclera anicteric Pupils: Present: PERRL - ENT ENT exam: Present: normal oropharynx Additional comments: Oxygen via nasal cannula - Neck Neck exam general surgery: Present: supple, trachea midline. Absent: lymphadenopathy - Respiratory Respiratory exam: Present: wheezes. Absent: accessory muscle use, decreased breath sounds, CTAB, prolonged expiratory phase, rales, respiratory distress, rhonchi Additional comments: Mild wheezing - Cardiovascular Cardiovascular exam: Present: RRR, +S1, +S2. Absent: diastolic murmur, gallop, rubs, systolic murmur - GI/Abdominal GI/Abdominal exam: Present: normal bowel sounds, soft, no peritoneal signs. Absent: distended, tenderness - Extremities Exam Extremities exam: Present: warm, radial pulses palpable and symetrical. Absent : calf tenderness, cyanotic, pedal edema - Neurological Exam Neurological exam: Present: CN II-XII intact, oriented X3, no focal deficits. Absent: pronater drift, facial droop, speech deficit - Skin Skin exam: Present: dry, intact <Ezra Tabor - Last Filed: 04/04/17 19:01> Date of Encounter: 04/04/17 Date of admission: 04/02/17 20:55 Primary care physician: Lianet De La Rosa DO Consults: 04/04/17 09:17 Consult to Physical Therapy [CONS] Stat Comment: Evaluate, develop and implement POC Reason for Consult: D/c planning OT [Consult to Occupational Therapy] [CONS] Stat Comment: Evaluate, develop and implement POC Reason for Consult: D/c planning - Patient Status Functional capacity at discharge: independent ambulation Overall status at discharge: patient is progressing back to baseline - Diet and Activity Activity: increase activity as tolerated Diet: low salt diet Hospital course: Ms. Sheppard is a 86 year old female - Time Spent with Patient Total time spent providing and/or coordinating discharge services: - Constitutional Vitals: Temp Pulse Resp BP Pulse Ox 98.2 F 72 16 125/71 98 04/04/17 15:09 04/04/17 15:09 04/04/17 16:09 04/04/17 15:09 04/04/17 16:09 - Attending Attestation I examined this patient and my medical decision-making was reviewed with the Resident Physician, Dr Eubanks. I agree with the documented findings, disposition and treatment plan as described except to the extent set forth below. the patient is back to baseline. She is currently using 2 L by nasal cannula oxygen supplementation, which is her home dose. She tolerates oral intake. Her pneumonia is improving with Levaquin. She appears euvolemic on physical exam. She will be discharged home with Close follow-up with PCP.
[2017-04-04] MEDS: Budesonide/Formoterol 80/4.5 MDI IH SCH (11:28)
--- NOTE | 2017-04-04 12:05 | Electrocardiograph Report ---
[place] [id number] Test Date: 2017-04-02 Pat Name: Ana Lilia Sheppard Department: 104 Room: 3B32 Gender: F Butcher Head: : 1930 Requested By: Eliseo Sandoval Order Number: [id number] Reading MD: Adan Irvin MD Measurements Intervals [place] Rate: 81 P: 29 AR: 144 QRS: 31 QRSD: 102 T: 42 QT: 379 QTc: 417 Interpretive Statements SINUS RHYTHM WITH SINUS ARRHYTHMIA BASELINE ARTIFACT Electronically Signed On 04-04-2017 12:04:17 EDT by Adan Irvin MD
[2017-04-04 15:10] VITALS: BP 125/71
[2017-04-04] MEDS ORDERED: *HR* Warfarin 7.5 MG TABLET PO SCH (18:00)
[2017-04-04] MEDS ORDERED: Levofloxacin 750 MG/150 ML 750 MG/150 ML BAG IVPB SCH (20:00)
[2017-04-06 17:25] LABS: Alpha 2 Globulin (PEP) 1.02 g/dL (0.48-1.05); Beta Globulin (PEP) 0.77 g/dL (0.48-1.10)
[2017-04-08 08:04] LABS: IFE Reflexed NOT DONE
[2017-04-08] MEDS ORDERED: *HR* Warfarin 2.5 MG TABLET PO SCH (18:00)
== END 2017-04-04 18:16 | disposition home or self-care (01) ==
LOC: EMEROO 15:18 → 3BNU 15:18 → SUATTDRO 20:55 → 3BNU 21:15
PROVIDERS: ADMIT Internal Medicine Endocrinology, Diabetes & Metabolism; ATTEND Internal Medicine

== ENCOUNTER 2019-11-11 15:57 | Observation (INO) ==
[2019-11-11 16:42] LABS: Prothrombin Time 34.1 Seconds (9.4-12.1)
[2019-11-11] MEDS ORDERED: Ondansetron 4 MG/2 ML VIAL IVP PRN (17:41)
[2019-11-11] MEDS ORDERED: Naloxone 0.4 MG/ML INJ IVP PRN (17:41)
[2019-11-11 18:39] LABS: Basophils # 0.1 K/mcL (0.0-0.2); Basophils % 0.4 %; Eosinophils # 0.1 K/mcL (0.0-0.6); Eosinophils % 0.7 %; Hematocrit 38.2 % (35.3-44.9); Hemoglobin 12.2 g/dL (11.5-15.4); Immature Granulocytes % 0.3 % (0-4); Lymphocytes % 69.7 %; Mean Corpuscular HGB Conc 31.9 g/dL (31.6-35.5); Mean Corpuscular Hemoglobin 33.4 pg (28.0-33.3); Mean Corpuscular Volume 104.7 fL (83.0-100.0); Mean Platelet Volume 11.6 fL (9.4-12.4); Monocytes # 0.8 K/mcL (0.0-1.3); Monocytes % 4.1 %; Neutrophils # 4.6 K/mcL (1.6-8.9); Platelet Count 177 K/mcL (140-400); Red Blood Count 3.65 M/mcL (3.82-4.97); Red Cell Distribution Width 14.8 % (11.5-14.5); Segmented Neutrophils % 24.8 %; White Blood Count 18.6 K/mcL (4.3-11.1)
[2019-11-11 18:58] LABS: BUN/Creatinine Ratio 19 (6-26); Blood Urea Nitrogen 17 mg/dL (8-23); Calcium 9.2 mg/dL (8.6-10.3); Carbon Dioxide 32 mEq/L (23-29); Chloride 99 mEq/L (98-107); Glucose 129 mg/dL (70-105); Osmolality,Calculated 289 (280-300); Potassium 3.8 mEq/L (3.5-5.1); Sodium 138 mEq/L (136-145); eGFR For African Americans > 60 (> 60); eGFR For Non-African Americans 59 (> 60)
[2019-11-11 19:03] LABS: Platelet Estimate Normal (Normal); Reactive Lymphocytes Present (Not Present)
[2019-11-11] MEDS: carvediloL 6.25 MG TABLET PO SCH (21:25)
[2019-11-11] MEDS: Acetaminophen 325 MG TABLET PO PRN (21:56)
[2019-11-11] MEDS: Bumetanide 1 MG TABLET PO SCH (21:56)
[2019-11-11] MEDS: Budesonide/Formoterol 160/4.5 1 PUFF INH IH SCH (22:02)
[2019-11-11] MEDS: Levalbuterol Neb 0.63 MG/3 ML IH PRN (22:02)
[2019-11-12 00:44] LABS: Bilirubin,Urine Negative (Negative); Blood,Urine Trace (Negative); Color,Urine Yellow (Yellow); Glucose,Urine (UA) Normal (Normal); Ketones,Urine Negative (Negative); Leukocyte Esterase,Urine Negative (Negative); Nitrite,Urine Negative (Negative); Protein,Urine Negative (Neg-Trace); Specific Gravity,Urine 1.021 (1.010-1.025); Urobilinogen,Urine Normal (Normal)
[2019-11-12 00:45] LABS: Bacteria,Urine None Seen per hpf (None-Few); Hyaline Casts,Urine None Seen per lpf (None-Few); RBC,Urine 0-3 per hpf (0-3); Squamous Epithelial Cell,Urine Many per lpf (None-Few)
[2019-11-12 00:47] LABS: Clarity,Urine Clear (Clear)
[2019-11-12 01:29] LABS: Hematocrit 34.3 % (35.3-44.9); Hemoglobin 11.4 g/dL (11.5-15.4)
[2019-11-12 01:32] LABS: Prothrombin Time 34.3 Seconds (9.4-12.1)
[2019-11-12 01:47] LABS: BUN/Creatinine Ratio 19 (6-26); Blood Urea Nitrogen 18 mg/dL (8-23); Calcium 8.7 mg/dL (8.6-10.3); Carbon Dioxide 34 mEq/L (23-29); Chloride 99 mEq/L (98-107); Glucose 147 mg/dL (70-105); Osmolality,Calculated 291 (280-300); Potassium 3.7 mEq/L (3.5-5.1); Sodium 138 mEq/L (136-145); eGFR For African Americans > 60 (> 60); eGFR For Non-African Americans 55 (> 60)
[2019-11-12 06:16] LABS: Hematocrit 34.5 % (35.3-44.9); Mean Corpuscular HGB Conc 31.9 g/dL (31.6-35.5); Mean Corpuscular Hemoglobin 33.1 pg (28.0-33.3); Mean Corpuscular Volume 103.9 fL (83.0-100.0); Mean Platelet Volume 11.5 fL (9.4-12.4); Platelet Count 167 K/mcL (140-400); Red Blood Count 3.32 M/mcL (3.82-4.97); Red Cell Distribution Width 14.8 % (11.5-14.5); White Blood Count 17.5 K/mcL (4.3-11.1)
[2019-11-12 08:09] LABS: Hematocrit 34.7 % (35.3-44.9); Hemoglobin 11.1 g/dL (11.5-15.4)
[2019-11-12] MEDS: carvediloL 6.25 MG TABLET PO SCH ×2 (09:01→16:16)
[2019-11-12] MEDS: *HR* OxyCODONE Immed Rel 5 MG TABLET PO PRN ×2 (09:01→16:16)
[2019-11-12] MEDS: Folic Acid 1 MG TABLET PO SCH (09:02)
[2019-11-12] MEDS: Bumetanide 1 MG TABLET PO SCH ×2 (09:02→19:49)
[2019-11-12] MEDS: Loratadine 10 MG TABLET PO SCH (09:02)
[2019-11-12] MEDS: Aspirin 81 MG TAB.CHEW PO SCH (09:02)
[2019-11-12] MEDS: Budesonide/Formoterol 160/4.5 1 PUFF INH IH SCH ×2 (10:29→22:16)
[2019-11-12] MEDS: Levalbuterol Neb 0.63 MG/3 ML IH PRN ×2 (10:31→22:16)
[2019-11-12] MEDS: Acetaminophen 325 MG TABLET PO PRN (13:32)
[2019-11-12 14:35] LABS: Hematocrit 35.6 % (35.3-44.9); Hemoglobin 11.9 g/dL (11.5-15.4)
[2019-11-12] MEDS ORDERED: Warfarin perPT PO PRN (18:00)
[2019-11-12] MEDS ORDERED: *HR* Warfarin 5 MG TABLET PO ONE (18:00)
[2019-11-13] MEDS: *HR* OxyCODONE Immed Rel 5 MG TABLET PO PRN ×2 (01:23→14:54)
[2019-11-13] MEDS: Acetaminophen 325 MG TABLET PO PRN ×2 (04:53→19:17)
[2019-11-13 05:41] LABS: Hemoglobin 11.4 g/dL (11.5-15.4); Mean Corpuscular HGB Conc 32.6 g/dL (31.6-35.5); Mean Corpuscular Hemoglobin 33.5 pg (28.0-33.3); Mean Corpuscular Volume 102.9 fL (83.0-100.0); Mean Platelet Volume 12.1 fL (9.4-12.4); Platelet Count 162 K/mcL (140-400); Red Cell Distribution Width 14.7 % (11.5-14.5); White Blood Count 18.6 K/mcL (4.3-11.1)
[2019-11-13 05:58] LABS: BUN/Creatinine Ratio 23 (6-26); Blood Urea Nitrogen 20 mg/dL (8-23); Calcium 8.7 mg/dL (8.6-10.3); Carbon Dioxide 33 mEq/L (23-29); Chloride 96 mEq/L (98-107); Glucose 129 mg/dL (70-105); Osmolality,Calculated 286 (280-300); Potassium 3.8 mEq/L (3.5-5.1); Sodium 136 mEq/L (136-145); eGFR For African Americans > 60 (> 60); eGFR For Non-African Americans > 60 (> 60)
[2019-11-13 06:12] LABS: INR 2.4; Prothrombin Time 27.8 Seconds (9.4-12.1)
[2019-11-13] MEDS: Budesonide/Formoterol 160/4.5 1 PUFF INH IH SCH ×2 (07:17→21:43)
[2019-11-13] MEDS: Levalbuterol Neb 0.63 MG/3 ML IH PRN ×2 (07:20→21:43)
[2019-11-13] MEDS: Bumetanide 1 MG TABLET PO SCH ×2 (08:21→21:32)
[2019-11-13] MEDS: Folic Acid 1 MG TABLET PO SCH (08:22)
[2019-11-13] MEDS: Loratadine 10 MG TABLET PO SCH (08:22)
[2019-11-13] MEDS: carvediloL 6.25 MG TABLET PO SCH ×2 (08:23→17:56)
[2019-11-13] MEDS: Aspirin 81 MG TAB.CHEW PO SCH (08:23)
[2019-11-13] MEDS ORDERED: *HR* Warfarin 7.5 MG TABLET PO ONE (18:00)
[2019-11-13] MEDS ORDERED: *HR* Warfarin 5 MG TABLET PO ONE (18:00)
[2019-11-14 06:30] LABS: INR 2.5; Prothrombin Time 28.2 Seconds (9.4-12.1)
[2019-11-14] MEDS: Budesonide/Formoterol 160/4.5 1 PUFF INH IH SCH (08:12)
[2019-11-14] MEDS: Aspirin 81 MG TAB.CHEW PO SCH (08:43)
[2019-11-14] MEDS: Folic Acid 1 MG TABLET PO SCH (08:43)
[2019-11-14] MEDS: carvediloL 6.25 MG TABLET PO SCH (08:43)
[2019-11-14] MEDS: Bumetanide 1 MG TABLET PO SCH (08:43)
[2019-11-14] MEDS: Loratadine 10 MG TABLET PO SCH (08:43)
[2019-11-14] MEDS: Acetaminophen 325 MG TABLET PO PRN (08:45)
[2019-11-14 10:40] VITALS: BP 127/76
[2019-11-14] MEDS: *HR* OxyCODONE Immed Rel 5 MG TABLET PO PRN (10:56)
== END 2019-11-14 13:30 ==
LOC: EMEROOARM 15:57 → 3NENU 15:57
PROVIDERS: ADMIT Pharmacist; ATTEND Pharmacist

== ENCOUNTER 2019-11-26 18:56 | Inpatient (IN) ==
[2019-11-26] MEDS ORDERED: Naloxone 0.4 MG/ML INJ IVP PRN (20:10)
[2019-11-26] MEDS ORDERED: Furosemide 40 MG/4 ML VIAL IVP ONE (21:00)
[2019-11-26 21:14] LABS: INR 1.2; Prothrombin Time 13.5 Seconds (9.4-12.1)
[2019-11-27 04:01] LABS: Basophils # 0.1 K/mcL (0.0-0.2); Basophils % 0.4 %; Eosinophils # 0.2 K/mcL (0.0-0.6); Eosinophils % 1.7 %; Hemoglobin 9.4 g/dL (11.5-15.4); Immature Granulocytes % 0.5 % (0-4); Lymphocytes # 8.3 K/mcL (0.6-4.6); Lymphocytes % 71.5 %; Mean Corpuscular HGB Conc 31.3 g/dL (31.6-35.5); Mean Corpuscular Hemoglobin 33.2 pg (28.0-33.3); Mean Platelet Volume 11.9 fL (9.4-12.4); Monocytes # 0.7 K/mcL (0.0-1.3); Monocytes % 5.9 %; Neutrophils # 2.3 K/mcL (1.6-8.9); Platelet Count 194 K/mcL (140-400); Red Blood Count 2.83 M/mcL (3.82-4.97); Red Cell Distribution Width 15.3 % (11.5-14.5); White Blood Count 11.6 K/mcL (4.3-11.1)
[2019-11-27 04:17] LABS: BUN/Creatinine Ratio 32 (6-26); Blood Urea Nitrogen 30 mg/dL (8-23); Calcium 8.8 mg/dL (8.6-10.3); Carbon Dioxide 33 mEq/L (23-29); Chloride 99 mEq/L (98-107); Glucose 110 mg/dL (70-105); Osmolality,Calculated 293 (280-300); Potassium 4.3 mEq/L (3.5-5.1); Sodium 138 mEq/L (136-145); eGFR For African Americans > 60 (> 60); eGFR For Non-African Americans 57 (> 60)
[2019-11-27 04:18] LABS: INR 1.2; Prothrombin Time 13.5 Seconds (9.4-12.1)
[2019-11-27 05:12] LABS: Reactive Lymphocytes Present (Not Present); Smudge Cells Present (Not Present)
[2019-11-27 05:13] LABS: Anisocytosis 1+ (Not Present); Platelet Estimate Normal (Normal)
[2019-11-27] MEDS ORDERED: *HR* Heparin 5,000 UNIT/ML VIAL IVP ONE (07:24)
[2019-11-27] MEDS ORDERED: *HR* Heparin 5,000 UNIT/ML VIAL IVP PRN ×2 (07:24)
[2019-11-27] MEDS ORDERED: Ipratropium/Albuterol Neb 3 ML IH PRN (07:24)
[2019-11-27] MEDS ORDERED: Perflutren Lipid Microsphere 1.3 ML in 0.9 % Sodium Chloride 8.7 ML IVP ONE (07:33)
[2019-11-27] MEDS ORDERED: Bumetanide 1 MG TABLET PO ONE (10:11)
[2019-11-27] MEDS ORDERED: Dextrose Gel 15 GM/37.5 ML TUBE PO PRN ×2 (10:12)
[2019-11-27] MEDS ORDERED: D5% in Water 1,000 ML IVC PRN (10:12)
[2019-11-27] MEDS ORDERED: *HR* Dextrose 50 % in Water (Syg) 50 ML SYRINGE IVP PRN (10:12)
[2019-11-27 11:19] LABS: Hematocrit 31.3 % (35.3-44.9); Mean Corpuscular HGB Conc 31.9 g/dL (31.6-35.5); Mean Corpuscular Hemoglobin 33.8 pg (28.0-33.3); Mean Corpuscular Volume 105.7 fL (83.0-100.0); Mean Platelet Volume 11.5 fL (9.4-12.4); Platelet Count 216 K/mcL (140-400); Red Blood Count 2.96 M/mcL (3.82-4.97); Red Cell Distribution Width 15.4 % (11.5-14.5); White Blood Count 12.8 K/mcL (4.3-11.1)
[2019-11-27 11:36] LABS: Heparin anti-factor XA UFH 0.65 IU/mL (0.30-0.70); INR 1.1; Prothrombin Time 12.1 Seconds (9.4-12.1)
[2019-11-27] MEDS: Insulin LISPRO 300 UNITS/3 ML VIAL SQ SCH ×2 (11:46→17:07)
[2019-11-27] MEDS: Heparin 25,000 UNIT/250 ML D5W 25,000 UNIT/250 ML IV.SOLN IVC SCH (11:58)
[2019-11-27] MEDS: carvediloL 6.25 MG TABLET PO SCH ×2 (12:00→17:10)
[2019-11-27] MEDS: Ipratropium Neb 0.5 MG NEBULIZER IH PRN (13:58)
[2019-11-27] MEDS ORDERED: Fluticasone Propionate Nasal 50 MCG/SPRAY BOTTLE NS PRN (15:27)
[2019-11-27] MEDS ORDERED: Bisacodyl 10 MG RECTAL SUPPOSITORY RC PRN (15:27)
[2019-11-27] MEDS ORDERED: Levalbuterol Neb 0.63 MG/3 ML IH PRN (15:27)
[2019-11-27] MEDS: Budesonide/Formoterol 160/4.5 1 PUFF INH IH SCH (19:58)
[2019-11-27] MEDS ORDERED: Insulin LISPRO 300 UNITS/3 ML VIAL SQ SCH (21:00)
[2019-11-28 01:26] LABS: Hematocrit 27.4 % (35.3-44.9); Hemoglobin 8.9 g/dL (11.5-15.4)
[2019-11-28] MEDS: Heparin 25,000 UNIT/250 ML D5W 25,000 UNIT/250 ML IV.SOLN IVC SCH (03:10)
[2019-11-28 04:36] LABS: INR 1.2; Prothrombin Time 13.8 Seconds (9.4-12.1)
[2019-11-28 04:39] LABS: Basophils # 0.1 K/mcL (0.0-0.2); Basophils % 0.4 %; Eosinophils # 0.2 K/mcL (0.0-0.6); Eosinophils % 1.7 %; Hematocrit 28.5 % (35.3-44.9); Hemoglobin 9.1 g/dL (11.5-15.4); Immature Granulocytes % 0.5 % (0-4); Lymphocytes # 9.7 K/mcL (0.6-4.6); Lymphocytes % 72.2 %; Mean Corpuscular HGB Conc 31.9 g/dL (31.6-35.5); Mean Corpuscular Hemoglobin 33.7 pg (28.0-33.3); Mean Corpuscular Volume 105.6 fL (83.0-100.0); Mean Platelet Volume 12.1 fL (9.4-12.4); Monocytes # 0.6 K/mcL (0.0-1.3); Monocytes % 4.8 %; Neutrophils # 2.7 K/mcL (1.6-8.9); Platelet Count 196 K/mcL (140-400); Red Cell Distribution Width 15.3 % (11.5-14.5); Segmented Neutrophils % 20.4 %; White Blood Count 13.4 K/mcL (4.3-11.1)
[2019-11-28 04:58] LABS: BUN/Creatinine Ratio 29 (6-26); Blood Urea Nitrogen 28 mg/dL (8-23); Calcium 8.7 mg/dL (8.6-10.3); Carbon Dioxide 33 mEq/L (23-29); Chloride 98 mEq/L (98-107); Glucose 114 mg/dL (70-105); Osmolality,Calculated 290 (280-300); Sodium 137 mEq/L (136-145); eGFR For African Americans > 60 (> 60); eGFR For Non-African Americans 54 (> 60)
[2019-11-28 06:11] LABS: Anisocytosis 1+ (Not Present); Platelet Estimate Normal (Normal); Reactive Lymphocytes Present (Not Present); Smudge Cells Present (Not Present)
[2019-11-28] MEDS: Ipratropium Neb 0.5 MG NEBULIZER IH PRN (08:05)
[2019-11-28] MEDS: Budesonide/Formoterol 160/4.5 1 PUFF INH IH SCH ×2 (08:05→22:07)
[2019-11-28] MEDS: Insulin LISPRO 300 UNITS/3 ML VIAL SQ SCH ×3 (08:34→21:54)
[2019-11-28] MEDS ORDERED: Cyanocobalamin (B-12) 1,000 MCG TABLET PO SCH (09:00)
[2019-11-28] MEDS ORDERED: allopurinoL 100 MG TABLET PO SCH (09:00)
[2019-11-28] MEDS ORDERED: Folic Acid 1 MG TABLET PO SCH (09:00)
[2019-11-28] MEDS ORDERED: Loratadine 10 MG TABLET PO SCH (09:00)
[2019-11-28] MEDS ORDERED: LOSARTAN POTASSIUM 25 MG PO SCH (09:00)
[2019-11-28] MEDS ORDERED: Multivit/Ca/Min/Fe/FA 1 TAB TABLET PO SCH (09:00)
[2019-11-28] MEDS: carvediloL 6.25 MG TABLET PO SCH (10:08)
[2019-11-28] MEDS ORDERED: Ropivacaine/PF 0.5% 30 ML VIAL ONE (14:36)
[2019-11-28] MEDS ORDERED: Ondansetron 4 MG/2 ML VIAL ONE (14:45)
[2019-11-28] MEDS ORDERED: Lidocaine -MPF 2% 2 ML VIAL ONE (14:45)
[2019-11-28] MEDS ORDERED: *HR* Propofol 200 MG/20 ML VIAL IVP ONE ×2 (14:45→14:50)
[2019-11-28] MEDS ORDERED: Lidocaine -MPF 4% 5 ML AMPUL ONE (14:45)
[2019-11-28] MEDS ORDERED: *HR* Succinylcholine 200 MG/10 ML VIAL IVP ONE (14:45)
[2019-11-28] MEDS ORDERED: Ethanol\\Acetic Acid\\Na Ace\\Ben 1,000 ML IRRIG.SOLN IR ONE (14:45)
[2019-11-28] MEDS ORDERED: *HR* Rocuronium Bromide 50 MG/5 ML VIAL ONE (14:49)
[2019-11-28] MEDS ORDERED: *HR* Phenylephrine 10 MG/ML VIAL ONE (14:52)
[2019-11-28] MEDS ORDERED: Vancomycin (wt based) 1,000 MG VIAL IVPB ONE (14:53)
[2019-11-28] MEDS ORDERED: *HR* Promethazine 25 MG/ML VIAL IVP PRN ×2 (15:10→17:44)
[2019-11-28] MEDS ORDERED: *HR* Metoprolol 5 MG/5 ML VIAL IVP PRN ×2 (15:10→17:44)
[2019-11-28] MEDS ORDERED: Ipratropium Neb 0.5 MG NEBULIZER IH PRN ×3 (15:10→17:44)
[2019-11-28] MEDS ORDERED: *HR* FentaNYL (PF) 100 MCG/2 ML VIAL IVP PRN ×2 (15:10→17:44)
[2019-11-28] MEDS ORDERED: *HR* OxyCODONE Immed Rel 5 MG TABLET PO PRN ×2 (15:10→17:44)
[2019-11-28] MEDS ORDERED: Ondansetron 4 MG/2 ML VIAL IVP ONE ×2 (15:10→17:44)
[2019-11-28] MEDS ORDERED: Levalbuterol Neb 0.63 MG/3 ML IH SCH (16:00)
[2019-11-28] MEDS ORDERED: Bumetanide 1 MG TABLET PO SCH (17:00)
[2019-11-28 17:41] LABS: Hematocrit 30.2 % (35.3-44.9); Hemoglobin 9.7 g/dL (11.5-15.4)
[2019-11-28] MEDS ORDERED: Fluticasone Propionate Nasal 50 MCG/SPRAY BOTTLE NS PRN (17:44)
[2019-11-28] MEDS ORDERED: Levalbuterol Neb 0.63 MG/3 ML IH PRN (17:44)
[2019-11-28] MEDS ORDERED: *HR* Dextrose 50 % in Water (Syg) 50 ML SYRINGE IVP PRN (17:44)
[2019-11-28] MEDS ORDERED: D5% in Water 1,000 ML IVC PRN (17:44)
[2019-11-28] MEDS ORDERED: Ondansetron 4 MG/2 ML VIAL IVP PRN (17:44)
[2019-11-28] MEDS ORDERED: Bisacodyl 10 MG RECTAL SUPPOSITORY RC PRN (17:44)
[2019-11-28] MEDS ORDERED: Dextrose Gel 15 GM/37.5 ML TUBE PO PRN ×2 (17:44)
[2019-11-28] MEDS ORDERED: MOM Conc 10 ML UD.LIQ PO PRN (17:44)
[2019-11-28] MEDS ORDERED: Sennosides 8.6 MG TABLET PO PRN (17:44)
[2019-11-28] MEDS ORDERED: Naloxone 0.4 MG/ML INJ IVP PRN (17:44)
[2019-11-28] MEDS ORDERED: Ringers Solution, Lactated 1,000 ML IVC SCH (17:44)
[2019-11-28] MEDS: Bumetanide 1 MG TABLET PO SCH (21:55)
[2019-11-28] MEDS: Levalbuterol Neb 0.63 MG/3 ML IH SCH (22:07)
[2019-11-29] MEDS: Levalbuterol Neb 0.63 MG/3 ML IH SCH ×4 (03:11→22:07)
[2019-11-29] MEDS ORDERED: Vancomycin (wt based) 1,000 MG VIAL IVPB ONE ×2 (04:00→05:00)
[2019-11-29] MEDS ORDERED: Bumetanide 1 MG/4 ML VIAL IVP ONE (06:46)
[2019-11-29] MEDS: Bumetanide 1 MG TABLET PO SCH ×2 (07:09→16:23)
[2019-11-29] MEDS ORDERED: *HR* Heparin 5,000 UNIT/ML VIAL IVP PRN ×2 (08:32)
[2019-11-29 09:40] LABS: Hematocrit 29.4 % (35.3-44.9); Hemoglobin 9.2 g/dL (11.5-15.4); Mean Corpuscular HGB Conc 31.3 g/dL (31.6-35.5); Mean Corpuscular Hemoglobin 33.2 pg (28.0-33.3); Mean Corpuscular Volume 106.1 fL (83.0-100.0); Mean Platelet Volume 11.9 fL (9.4-12.4); Platelet Count 195 K/mcL (140-400); Red Blood Count 2.77 M/mcL (3.82-4.97); Red Cell Distribution Width 15.3 % (11.5-14.5); White Blood Count 16.2 K/mcL (4.3-11.1)
[2019-11-29 09:51] LABS: INR 1.2; Prothrombin Time 13.6 Seconds (9.4-12.1)
[2019-11-29 09:54] LABS: Heparin anti-factor XA UFH < 0.04 IU/mL (0.30-0.70)
[2019-11-29 10:02] LABS: BUN/Creatinine Ratio 27 (6-26); Blood Urea Nitrogen 26 mg/dL (8-23); Calcium 8.7 mg/dL (8.6-10.3); Carbon Dioxide 30 mEq/L (23-29); Chloride 99 mEq/L (98-107); Glucose 142 mg/dL (70-105); Osmolality,Calculated 291 (280-300); Potassium 4.3 mEq/L (3.5-5.1); Sodium 137 mEq/L (136-145); eGFR For African Americans > 60 (> 60); eGFR For Non-African Americans 54 (> 60)
[2019-11-29 10:15] LABS: Lymphocytes # 8.8 K/mcL (0.6-4.6); Monocytes # 0.7 K/mcL (0.0-1.3); Neutrophils # 6.8 K/mcL (1.6-8.9)
[2019-11-29 10:16] LABS: Anisocytosis 1+ (Not Present); Macrocytosis Present (Not Present); Polychromasia 1+ (Not Present)
[2019-11-29 10:17] LABS: Platelet Estimate Normal (Normal); Reactive Lymphocytes Present (Not Present); Smudge Cells Present (Not Present)
[2019-11-29] MEDS: Insulin LISPRO 300 UNITS/3 ML VIAL SQ SCH ×4 (10:40→20:49)
[2019-11-29] MEDS: allopurinoL 100 MG TABLET PO SCH (10:45)
[2019-11-29] MEDS: Cyanocobalamin (B-12) 1,000 MCG TABLET PO SCH (10:45)
[2019-11-29] MEDS: Folic Acid 1 MG TABLET PO SCH (10:45)
[2019-11-29] MEDS: Multivit/Ca/Min/Fe/FA 1 TAB TABLET PO SCH (10:45)
[2019-11-29] MEDS: Loratadine 10 MG TABLET PO SCH (10:45)
[2019-11-29] MEDS: carvediloL 6.25 MG TABLET PO SCH ×2 (10:46→16:23)
[2019-11-29] MEDS: Heparin 25,000 UNIT/250 ML D5W 25,000 UNIT/250 ML IV.SOLN IVC SCH (10:46)
[2019-11-29] MEDS: Budesonide/Formoterol 160/4.5 1 PUFF INH IH SCH ×2 (11:00→22:02)
[2019-11-29] MEDS ORDERED: *HR* Warfarin 5 MG TABLET PO ONE (18:00)
[2019-11-29] MEDS ORDERED: Warfarin perPT PO PRN (18:00)
[2019-11-29] MEDS: AREDS2 PO SCH (20:49)
[2019-11-30 03:18] LABS: Basophils # 0.1 K/mcL (0.0-0.2); Basophils % 0.3 %; Eosinophils % 0.2 %; Hematocrit 30.8 % (35.3-44.9); Hemoglobin 9.3 g/dL (11.5-15.4); Immature Granulocytes % 0.7 % (0-4); Lymphocytes # 10.3 K/mcL (0.6-4.6); Lymphocytes % 62.2 %; Mean Corpuscular HGB Conc 30.2 g/dL (31.6-35.5); Mean Corpuscular Hemoglobin 33.5 pg (28.0-33.3); Mean Corpuscular Volume 110.8 fL (83.0-100.0); Mean Platelet Volume 12.4 fL (9.4-12.4); Neutrophils # 5.1 K/mcL (1.6-8.9); Nucleated Red Blood Cells 0.1 /100 WBC (0); Platelet Count 182 K/mcL (140-400); Red Blood Count 2.78 M/mcL (3.82-4.97); Red Cell Distribution Width 15.7 % (11.5-14.5); Segmented Neutrophils % 30.6 %; White Blood Count 16.6 K/mcL (4.3-11.1)
[2019-11-30 03:25] LABS: Heparin anti-factor XA UFH 0.86 IU/mL (0.30-0.70); INR 1.3; Prothrombin Time 15.3 Seconds (9.4-12.1)
[2019-11-30 03:38] LABS: Calcium 8.4 mg/dL (8.6-10.3); Potassium 4.3 mEq/L (3.5-5.1)
[2019-11-30 03:39] LABS: Platelet Estimate Normal (Normal)
[2019-11-30 03:40] LABS: Hypochromasia Present (Not Present); Macrocytosis Present (Not Present); Reactive Lymphocytes Present (Not Present)
[2019-11-30] MEDS: Levalbuterol Neb 0.63 MG/3 ML IH SCH ×4 (04:19→22:21)
[2019-11-30] MEDS: carvediloL 6.25 MG TABLET PO SCH ×2 (08:06→17:17)
[2019-11-30] MEDS: Bumetanide 1 MG TABLET PO SCH (08:06)
[2019-11-30] MEDS: Folic Acid 1 MG TABLET PO SCH (08:06)
[2019-11-30] MEDS: Loratadine 10 MG TABLET PO SCH (08:06)
[2019-11-30] MEDS: Cyanocobalamin (B-12) 1,000 MCG TABLET PO SCH (08:06)
[2019-11-30] MEDS: Multivit/Ca/Min/Fe/FA 1 TAB TABLET PO SCH (08:07)
[2019-11-30] MEDS: AREDS2 PO SCH ×2 (08:07→20:59)
[2019-11-30] MEDS: Insulin LISPRO 300 UNITS/3 ML VIAL SQ SCH ×4 (08:07→21:01)
[2019-11-30] MEDS: allopurinoL 100 MG TABLET PO SCH (08:07)
[2019-11-30] MEDS: Heparin 25,000 UNIT/250 ML D5W 25,000 UNIT/250 ML IV.SOLN IVC SCH (08:09)
[2019-11-30] MEDS: Budesonide/Formoterol 160/4.5 1 PUFF INH IH SCH ×2 (10:57→22:21)
[2019-11-30] MEDS ORDERED: *HR* Warfarin 5 MG TABLET PO ONE (18:00)
[2019-11-30] MEDS ORDERED: Bumetanide 1 MG/4 ML VIAL IVP ONE (20:00)
[2019-12-01] MEDS: Levalbuterol Neb 0.63 MG/3 ML IH SCH ×4 (04:22→21:51)
[2019-12-01 06:30] LABS: INR 1.3; Prothrombin Time 14.8 Seconds (9.4-12.1)
[2019-12-01 06:42] LABS: BUN/Creatinine Ratio 33 (6-26); Blood Urea Nitrogen 31 mg/dL (8-23); Calcium 8.5 mg/dL (8.6-10.3); Carbon Dioxide 30 mEq/L (23-29); Chloride 92 mEq/L (98-107); Glucose 127 mg/dL (70-105); Osmolality,Calculated 290 (280-300); Potassium 4.4 mEq/L (3.5-5.1); Sodium 136 mEq/L (136-145); eGFR For African Americans > 60 (> 60); eGFR For Non-African Americans 56 (> 60)
[2019-12-01] MEDS: Insulin LISPRO 300 UNITS/3 ML VIAL SQ SCH ×4 (07:12→20:15)
[2019-12-01] MEDS: Folic Acid 1 MG TABLET PO SCH (07:39)
[2019-12-01] MEDS: Cyanocobalamin (B-12) 1,000 MCG TABLET PO SCH (07:39)
[2019-12-01] MEDS: carvediloL 6.25 MG TABLET PO SCH ×2 (07:39→18:27)
[2019-12-01] MEDS: allopurinoL 100 MG TABLET PO SCH (07:39)
[2019-12-01] MEDS: Loratadine 10 MG TABLET PO SCH (07:40)
[2019-12-01] MEDS: Multivit/Ca/Min/Fe/FA 1 TAB TABLET PO SCH (07:40)
[2019-12-01] MEDS: AREDS2 PO SCH ×2 (07:40→20:14)
[2019-12-01] MEDS: Bumetanide 1 MG TABLET PO SCH ×2 (07:40→18:36)
[2019-12-01] MEDS ORDERED: Acetaminophen 325 MG TABLET PO PRN (07:47)
[2019-12-01] MEDS: Budesonide/Formoterol 160/4.5 1 PUFF INH IH SCH ×2 (09:44→21:51)
[2019-12-01] MEDS: Heparin 25,000 UNIT/250 ML D5W 25,000 UNIT/250 ML IV.SOLN IVC SCH (09:47)
[2019-12-01] MEDS: *HR* OxyCODONE/APAP 5/325 TABLET PO PRN ×2 (14:06→23:17)
[2019-12-01 15:44] LABS: Hematocrit 26.8 % (35.3-44.9); Hemoglobin 8.5 g/dL (11.5-15.4)
[2019-12-01] MEDS ORDERED: *HR* Warfarin 5 MG TABLET PO ONE (18:00)
[2019-12-01] MEDS ORDERED: carvediloL 6.25 MG TABLET PO ONE (21:01)
[2019-12-01 22:32] LABS: Hematocrit 27.8 % (35.3-44.9); Hemoglobin 8.8 g/dL (11.5-15.4)
[2019-12-02 03:30] LABS: Basophils % 0.3 %; Eosinophils # 0.2 K/mcL (0.0-0.6); Hematocrit 26.1 % (35.3-44.9); Hemoglobin 8.3 g/dL (11.5-15.4); Immature Granulocytes % 0.7 % (0-4); Lymphocytes # 10.4 K/mcL (0.6-4.6); Lymphocytes % 68.4 %; Mean Corpuscular HGB Conc 31.8 g/dL (31.6-35.5); Mean Corpuscular Hemoglobin 33.7 pg (28.0-33.3); Mean Corpuscular Volume 106.1 fL (83.0-100.0); Mean Platelet Volume 12.2 fL (9.4-12.4); Monocytes # 0.6 K/mcL (0.0-1.3); Monocytes % 4.1 %; Neutrophils # 3.9 K/mcL (1.6-8.9); Platelet Count 182 K/mcL (140-400); Red Blood Count 2.46 M/mcL (3.82-4.97); Red Cell Distribution Width 15.5 % (11.5-14.5); Segmented Neutrophils % 25.5 %; White Blood Count 15.2 K/mcL (4.3-11.1)
[2019-12-02] MEDS: Levalbuterol Neb 0.63 MG/3 ML IH SCH ×4 (03:32→22:14)
[2019-12-02 03:34] LABS: Basophils # 0.1 K/mcL (0.0-0.2)
[2019-12-02 03:36] LABS: INR 1.4; Prothrombin Time 16.4 Seconds (9.4-12.1)
[2019-12-02 03:48] LABS: BUN/Creatinine Ratio 34 (6-26); Blood Urea Nitrogen 30 mg/dL (8-23); Calcium 8.5 mg/dL (8.6-10.3); Carbon Dioxide 33 mEq/L (23-29); Chloride 95 mEq/L (98-107); Glucose 114 mg/dL (70-105); Osmolality,Calculated 279 (280-300); Potassium 4.2 mEq/L (3.5-5.1); Sodium 131 mEq/L (136-145); eGFR For African Americans > 60 (> 60); eGFR For Non-African Americans > 60 (> 60)
[2019-12-02 03:59] LABS: Platelet Estimate Normal (Normal); Smudge Cells Present (Not Present); Stomatocytes 1+ (Not Present)
[2019-12-02 04:00] LABS: Anisocytosis 1+ (Not Present)
[2019-12-02] MEDS: Insulin LISPRO 300 UNITS/3 ML VIAL SQ SCH ×4 (07:41→21:09)
[2019-12-02] MEDS ORDERED: Bumetanide 1 MG/4 ML VIAL IVP ONE (07:43)
[2019-12-02] MEDS: Cyanocobalamin (B-12) 1,000 MCG TABLET PO SCH (07:54)
[2019-12-02] MEDS: Loratadine 10 MG TABLET PO SCH (07:54)
[2019-12-02] MEDS: carvediloL 6.25 MG TABLET PO SCH ×2 (07:54→17:54)
[2019-12-02] MEDS: allopurinoL 100 MG TABLET PO SCH (07:54)
[2019-12-02] MEDS: Multivit/Ca/Min/Fe/FA 1 TAB TABLET PO SCH (07:54)
[2019-12-02] MEDS: Folic Acid 1 MG TABLET PO SCH (07:54)
[2019-12-02] MEDS: AREDS2 PO SCH ×2 (08:00→20:01)
[2019-12-02] MEDS: Budesonide/Formoterol 160/4.5 1 PUFF INH IH SCH ×2 (10:26→22:14)
[2019-12-02 12:59] LABS: Hematocrit 28.9 % (35.3-44.9)
[2019-12-02] MEDS: Heparin 25,000 UNIT/250 ML D5W 25,000 UNIT/250 ML IV.SOLN IVC SCH (13:00)
[2019-12-02] MEDS ORDERED: *HR* Warfarin 5 MG TABLET PO ONE (18:00)
[2019-12-02] MEDS: *HR* OxyCODONE/APAP 5/325 TABLET PO PRN (20:00)
[2019-12-02] MEDS ORDERED: carvediloL 6.25 MG TABLET PO ONE (20:31)
[2019-12-02] MEDS ORDERED: Bumetanide 1 MG TABLET PO ONE (21:00)
[2019-12-03] MEDS: Levalbuterol Neb 0.63 MG/3 ML IH SCH ×4 (03:21→21:58)
[2019-12-03 05:29] LABS: Hematocrit 26.2 % (35.3-44.9); Hemoglobin 8.3 g/dL (11.5-15.4)
[2019-12-03 05:35] LABS: INR 1.6; Prothrombin Time 18.5 Seconds (9.4-12.1)
[2019-12-03] MEDS: Insulin LISPRO 300 UNITS/3 ML VIAL SQ SCH ×4 (07:30→20:31)
[2019-12-03] MEDS: Folic Acid 1 MG TABLET PO SCH (07:44)
[2019-12-03] MEDS: Multivit/Ca/Min/Fe/FA 1 TAB TABLET PO SCH (07:44)
[2019-12-03] MEDS: Cyanocobalamin (B-12) 1,000 MCG TABLET PO SCH (07:44)
[2019-12-03] MEDS: allopurinoL 100 MG TABLET PO SCH (07:44)
[2019-12-03] MEDS: carvediloL 6.25 MG TABLET PO SCH ×2 (07:45→17:05)
[2019-12-03] MEDS: Loratadine 10 MG TABLET PO SCH (07:45)
[2019-12-03] MEDS: AREDS2 PO SCH ×2 (07:45→20:30)
[2019-12-03] MEDS: Bumetanide 1 MG/4 ML VIAL IVP SCH ×2 (10:25→17:05)
[2019-12-03] MEDS: Budesonide/Formoterol 160/4.5 1 PUFF INH IH SCH ×2 (10:38→21:58)
[2019-12-03] MEDS: Heparin 25,000 UNIT/250 ML D5W 25,000 UNIT/250 ML IV.SOLN IVC SCH (17:49)
[2019-12-03] MEDS ORDERED: *HR* Warfarin 5 MG TABLET PO ONE (18:00)
[2019-12-03] MEDS: *HR* OxyCODONE/APAP 10/325 TABLET PO PRN (20:17)
[2019-12-04] MEDS: Levalbuterol Neb 0.63 MG/3 ML IH SCH ×4 (04:10→22:32)
[2019-12-04] MEDS: *HR* OxyCODONE/APAP 10/325 TABLET PO PRN ×2 (05:44→21:51)
[2019-12-04 05:54] LABS: Hematocrit 26.6 % (35.3-44.9); Hemoglobin 8.3 g/dL (11.5-15.4); INR 1.9; Prothrombin Time 21.7 Seconds (9.4-12.1)
[2019-12-04 06:09] LABS: BUN/Creatinine Ratio 31 (6-26); Blood Urea Nitrogen 26 mg/dL (8-23); Calcium 8.7 mg/dL (8.6-10.3); Carbon Dioxide 33 mEq/L (23-29); Chloride 96 mEq/L (98-107); Glucose 116 mg/dL (70-105); Osmolality,Calculated 280 (280-300); Sodium 132 mEq/L (136-145); eGFR For African Americans > 60 (> 60); eGFR For Non-African Americans > 60 (> 60)
[2019-12-04] MEDS: Loratadine 10 MG TABLET PO SCH (08:24)
[2019-12-04] MEDS: Folic Acid 1 MG TABLET PO SCH (08:24)
[2019-12-04] MEDS: Cyanocobalamin (B-12) 1,000 MCG TABLET PO SCH (08:24)
[2019-12-04] MEDS: carvediloL 6.25 MG TABLET PO SCH ×2 (08:25→17:14)
[2019-12-04] MEDS: allopurinoL 100 MG TABLET PO SCH (08:25)
[2019-12-04] MEDS: Multivit/Ca/Min/Fe/FA 1 TAB TABLET PO SCH (08:25)
[2019-12-04] MEDS: AREDS2 PO SCH ×2 (08:27→21:52)
[2019-12-04] MEDS: Insulin LISPRO 300 UNITS/3 ML VIAL SQ SCH ×4 (08:28→21:52)
[2019-12-04] MEDS: Bumetanide 1 MG/4 ML VIAL IVP SCH ×2 (08:28→17:16)
[2019-12-04] MEDS: Budesonide/Formoterol 160/4.5 1 PUFF INH IH SCH ×2 (10:35→22:32)
[2019-12-04] MEDS: *HR* OxyCODONE/APAP 5/325 TABLET PO PRN (13:48)
[2019-12-04] MEDS ORDERED: *HR* Warfarin 5 MG TABLET PO ONE (18:00)
[2019-12-04] MEDS: Heparin 25,000 UNIT/250 ML D5W 25,000 UNIT/250 ML IV.SOLN IVC SCH (18:56)
[2019-12-05] MEDS: Levalbuterol Neb 0.63 MG/3 ML IH SCH ×2 (03:46→11:09)
[2019-12-05 05:02] LABS: Hematocrit 26.3 % (35.3-44.9); Hemoglobin 8.5 g/dL (11.5-15.4)
[2019-12-05 05:04] LABS: INR 2.1
[2019-12-05] MEDS: Loratadine 10 MG TABLET PO SCH (08:05)
[2019-12-05] MEDS: carvediloL 6.25 MG TABLET PO SCH (08:06)
[2019-12-05] MEDS: Cyanocobalamin (B-12) 1,000 MCG TABLET PO SCH (08:07)
[2019-12-05] MEDS: allopurinoL 100 MG TABLET PO SCH (08:07)
[2019-12-05] MEDS: Multivit/Ca/Min/Fe/FA 1 TAB TABLET PO SCH (08:07)
[2019-12-05] MEDS: Folic Acid 1 MG TABLET PO SCH (08:08)
[2019-12-05] MEDS: AREDS2 PO SCH (08:09)
[2019-12-05] MEDS: Bumetanide 1 MG/4 ML VIAL IVP SCH (08:09)
[2019-12-05] MEDS: Insulin LISPRO 300 UNITS/3 ML VIAL SQ SCH ×2 (08:19→11:39)
[2019-12-05] MEDS: *HR* OxyCODONE/APAP 5/325 TABLET PO PRN (09:36)
[2019-12-05 11:06] VITALS: BP 101/61
[2019-12-05] MEDS ORDERED: Bumetanide 1 MG/4 ML VIAL IVP ONE (11:06)
[2019-12-05] MEDS: Budesonide/Formoterol 160/4.5 1 PUFF INH IH SCH (11:09)
[2019-12-05] MEDS ORDERED: *HR* Warfarin 2.5 MG TABLET PO ONE (18:00)
== END 2019-12-05 15:19 ==
LOC: 3ANU → SUATTDRO 18:56 → 3NENU 11-27 15:15 → SUATTDRO 11-28 14:36 → EDSTATUS 11-28 15:50
PROVIDERS: ADMIT Internal Medicine; ATTEND Internal Medicine

== ENCOUNTER 2019-12-15 11:35 | Observation (INO) ==
[2019-12-15] MEDS ORDERED: Ipratropium/Albuterol Neb 3 ML IH PRN (16:36)
[2019-12-15] MEDS ORDERED: Acetaminophen 325 MG TABLET PO PRN (16:45)
[2019-12-15] MEDS: Furosemide 40 MG/4 ML VIAL IVP SCH ×2 (17:22→20:41)
[2019-12-15] MEDS: Albumin 25% 25gram/100mL 25 GM/100 ML IV.SOLN IVPB SCH (17:22)
[2019-12-15] MEDS ORDERED: *HR* Warfarin 2.5 MG TABLET PO ONE (18:00)
[2019-12-15] MEDS ORDERED: Warfarin perPT PO PRN (18:00)
[2019-12-15] MEDS: Acetylcysteine 10% 2 ML INHSOL IH SCH ×2 (18:05→21:33)
[2019-12-15] MEDS: Ipratropium/Albuterol Neb 3 ML IH SCH ×2 (18:05→21:33)
[2019-12-15] MEDS: carvediloL 6.25 MG TABLET PO SCH (20:33)
[2019-12-15] MEDS: Budesonide/Formoterol 160/4.5 1 PUFF INH IH SCH (21:33)
[2019-12-16] MEDS: Albumin 25% 25gram/100mL 25 GM/100 ML IV.SOLN IVPB SCH ×3 (00:09→15:23)
[2019-12-16] MEDS: Acetylcysteine 10% 2 ML INHSOL IH SCH ×4 (04:11→22:00)
[2019-12-16] MEDS: Ipratropium/Albuterol Neb 3 ML IH SCH ×4 (04:11→22:00)
[2019-12-16 05:56] LABS: INR 2.4; Prothrombin Time 27.3 Seconds (9.4-12.1)
[2019-12-16 05:58] LABS: Basophils % 0.3 %; Eosinophils # 0.1 K/mcL (0.0-0.6); Hemoglobin 8.9 g/dL (11.5-15.4); Immature Granulocytes % 0.8 % (0-4); Lymphocytes # 5.2 K/mcL (0.6-4.6); Lymphocytes % 55.5 %; Mean Corpuscular HGB Conc 29.7 g/dL (31.6-35.5); Mean Corpuscular Hemoglobin 32.8 pg (28.0-33.3); Mean Corpuscular Volume 110.7 fL (83.0-100.0); Mean Platelet Volume 11.9 fL (9.4-12.4); Monocytes # 0.5 K/mcL (0.0-1.3); Monocytes % 4.9 %; Neutrophils # 3.5 K/mcL (1.6-8.9); Platelet Count 168 K/mcL (140-400); Red Blood Count 2.71 M/mcL (3.82-4.97); Red Cell Distribution Width 16.6 % (11.5-14.5); Segmented Neutrophils % 37.5 %; White Blood Count 9.3 K/mcL (4.3-11.1)
[2019-12-16 06:10] LABS: BUN/Creatinine Ratio 30 (6-26); Blood Urea Nitrogen 28 mg/dL (8-23); Calcium 8.9 mg/dL (8.6-10.3); Carbon Dioxide 37 mEq/L (23-29); Chloride 97 mEq/L (98-107); Glucose 114 mg/dL (70-105); Osmolality,Calculated 294 (280-300); Potassium 3.2 mEq/L (3.5-5.1); Sodium 139 mEq/L (136-145); eGFR For African Americans > 60 (> 60); eGFR For Non-African Americans 57 (> 60)
[2019-12-16 06:40] LABS: Macrocytosis Present (Not Present); Platelet Estimate Normal (Normal)
[2019-12-16] MEDS: Furosemide 40 MG/4 ML VIAL IVP SCH (07:58)
[2019-12-16] MEDS: Cyanocobalamin (B-12) 1,000 MCG TABLET PO SCH (07:58)
[2019-12-16] MEDS: Aspirin 81 MG TAB.CHEW PO SCH (07:58)
[2019-12-16] MEDS: carvediloL 6.25 MG TABLET PO SCH ×2 (07:58→20:44)
[2019-12-16] MEDS: allopurinoL 100 MG TABLET PO SCH (07:58)
[2019-12-16] MEDS: Bumetanide 1 MG/4 ML VIAL IVP SCH ×2 (09:40→17:04)
[2019-12-16] MEDS: Budesonide/Formoterol 160/4.5 1 PUFF INH IH SCH ×2 (09:46→22:00)
[2019-12-16] MEDS ORDERED: *HR* Warfarin 5 MG TABLET PO ONE (18:00)
[2019-12-17] MEDS: Ipratropium/Albuterol Neb 3 ML IH SCH ×3 (03:08→15:53)
[2019-12-17] MEDS: Acetylcysteine 10% 2 ML INHSOL IH SCH ×3 (03:08→15:54)
[2019-12-17 03:27] LABS: BUN/Creatinine Ratio 28 (6-26); Blood Urea Nitrogen 28 mg/dL (8-23); Carbon Dioxide 35 mEq/L (23-29); Chloride 100 mEq/L (98-107); Glucose 147 mg/dL (70-105); Osmolality,Calculated 300 (280-300); Potassium 4.2 mEq/L (3.5-5.1); Sodium 141 mEq/L (136-145); eGFR For African Americans > 60 (> 60); eGFR For Non-African Americans 52 (> 60)
[2019-12-17 05:19] LABS: INR 2.6; Prothrombin Time 29.7 Seconds (9.4-12.1)
[2019-12-17] MEDS: Aspirin 81 MG TAB.CHEW PO SCH (09:22)
[2019-12-17] MEDS: Cyanocobalamin (B-12) 1,000 MCG TABLET PO SCH (09:22)
[2019-12-17] MEDS: Bumetanide 1 MG/4 ML VIAL IVP SCH (09:22)
[2019-12-17] MEDS: allopurinoL 100 MG TABLET PO SCH (09:22)
[2019-12-17] MEDS: carvediloL 6.25 MG TABLET PO SCH (09:22)
[2019-12-17] MEDS: Budesonide/Formoterol 160/4.5 1 PUFF INH IH SCH (10:56)
[2019-12-17 11:28] VITALS: BP 123/58
[2019-12-17] MEDS ORDERED: metOLazone 2.5 MG TABLET PO SCH (12:15)
[2019-12-17] MEDS ORDERED: Bumetanide 1 MG TABLET PO SCH (17:00)
[2019-12-17] MEDS ORDERED: *HR* Warfarin 5 MG TABLET PO ONE (18:00)
== END 2019-12-17 18:50 ==
LOC: 2NENU
PROVIDERS: ADMIT Internal Medicine; ATTEND Internal Medicine

== ENCOUNTER 2020-05-13 16:37 | Observation (INO) ==
[2020-05-13 17:38] LABS: Basophils % 0.3 %; Eosinophils # 0.2 K/mcL (0.0-0.6); Eosinophils % 1.6 %; Hematocrit 36.2 % (35.3-44.9); Hemoglobin 11.3 g/dL (11.5-15.4); Immature Granulocytes % 0.1 % (0-4); Lymphocytes # 6.2 K/mcL (0.6-4.6); Lymphocytes % 66.2 %; Mean Corpuscular HGB Conc 31.2 g/dL (31.6-35.5); Mean Corpuscular Hemoglobin 33.3 pg (28.0-33.3); Mean Corpuscular Volume 106.8 fL (83.0-100.0); Mean Platelet Volume 12.6 fL (9.4-12.4); Monocytes # 0.4 K/mcL (0.0-1.3); Monocytes % 4.2 %; Neutrophils # 2.6 K/mcL (1.6-8.9); Platelet Count 119 K/mcL (140-400); Red Blood Count 3.39 M/mcL (3.82-4.97); Red Cell Distribution Width 18.6 % (11.5-14.5); Segmented Neutrophils % 27.6 %; White Blood Count 9.4 K/mcL (4.3-11.1)
[2020-05-13 17:43] LABS: Activated Partial Thrombo Time 52.7 Seconds (26.0-36.0)
[2020-05-13 17:57] LABS: Calcium 9.5 mg/dL (8.6-10.3); Potassium 3.7 mEq/L (3.5-5.1)
[2020-05-13 17:58] LABS: INR 9.6; Prothrombin Time 109.2 Seconds (9.4-12.1)
[2020-05-13 18:35] LABS: Anisocytosis 1+ (Not Present); Platelet Estimate Slight Decrease (Normal); Reactive Lymphocytes Present (Not Present); Smudge Cells Present (Not Present)
[2020-05-13] MEDS ORDERED: D5% in Water 1,000 ML IVC PRN (20:39)
[2020-05-13] MEDS ORDERED: Dextrose Gel 15 GM/37.5 ML TUBE PO PRN ×2 (20:39)
[2020-05-13] MEDS ORDERED: Naloxone 0.4 MG/ML INJ IVP PRN (20:39)
[2020-05-13] MEDS ORDERED: *HR* Dextrose 50 % in Water (Vial) 50 ML VIAL IVP PRN (20:39)
[2020-05-13] MEDS ORDERED: *HR* Phytonadione 5 MG TABLET PO ONE (20:55)
[2020-05-13] MEDS ORDERED: *HR* Promethazine 25 MG/ML VIAL IVP PRN (21:52)
[2020-05-13] MEDS ORDERED: Acetaminophen 325 MG TABLET PO PRN (21:52)
[2020-05-13] MEDS: Insulin LISPRO 300 UNITS/3 ML VIAL SQ SCH (22:10)
[2020-05-14 02:31] LABS: Hematocrit 33.7 % (35.3-44.9); Hemoglobin 10.6 g/dL (11.5-15.4); Mean Corpuscular HGB Conc 31.5 g/dL (31.6-35.5); Mean Corpuscular Hemoglobin 33.7 pg (28.0-33.3); Mean Platelet Volume 12.5 fL (9.4-12.4); Platelet Count 110 K/mcL (140-400); Red Blood Count 3.15 M/mcL (3.82-4.97); Red Cell Distribution Width 18.2 % (11.5-14.5); White Blood Count 8.7 K/mcL (4.3-11.1)
[2020-05-14 02:38] LABS: Activated Partial Thrombo Time 47.2 Seconds (26.0-36.0)
[2020-05-14 02:47] LABS: INR 9.4; Prothrombin Time 106.7 Seconds (9.4-12.1)
[2020-05-14 02:54] LABS: Albumin 3.4 g/dL (3.5-5.7); Albumin/Globulin Ratio 1.1 (1.1-2.2); Bilirubin,Direct 0.2 mg/dL (0.0-0.2); Bilirubin,Indirect 0.5 mg/dL (0.0-1.0); Bilirubin,Total 0.7 mg/dL (0.3-1.0); Globulin 3.1 g/dL (2.4-3.5); Total Protein 6.5 g/dL (6.4-8.9)
[2020-05-14 02:59] LABS: Lymphocytes # 6.6 K/mcL (0.6-4.6); Neutrophils # 2.1 K/mcL (1.6-8.9); Reactive Lymphocytes Present (Not Present); Smudge Cells Present (Not Present)
[2020-05-14 03:00] LABS: Platelet Estimate Slight Decrease (Normal)
[2020-05-14 03:07] LABS: BUN/Creatinine Ratio 28 (6-26); Blood Urea Nitrogen 29 mg/dL (8-23); Calcium 9.4 mg/dL (8.6-10.3); Carbon Dioxide 42 mEq/L (23-29); Chloride 92 mEq/L (98-107); Glucose 119 mg/dL (70-105); Magnesium 1.7 mg/dL (1.6-2.6); Osmolality,Calculated 297 (280-300); Phosphorous 3.6 mg/dL (2.7-4.5); Potassium 3.7 mEq/L (3.5-5.1); Sodium 140 mEq/L (136-145); eGFR For African Americans > 60 (> 60); eGFR For Non-African Americans 50 (> 60)
[2020-05-14] MEDS: Insulin LISPRO 300 UNITS/3 ML VIAL SQ SCH ×4 (08:03→19:26)
[2020-05-14] MEDS: carvediloL 6.25 MG TABLET PO SCH (17:55)
[2020-05-14] MEDS: Bumetanide 1 MG TABLET PO SCH (17:55)
[2020-05-14] MEDS ORDERED: Warfarin perPT PO PRN (18:00)
[2020-05-14] MEDS: Budesonide/Formoterol 160/4.5 1 PUFF INH IH SCH (21:55)
[2020-05-15 05:28] LABS: Hematocrit 36.9 % (35.3-44.9); Hemoglobin 11.6 g/dL (11.5-15.4); Mean Corpuscular HGB Conc 31.4 g/dL (31.6-35.5); Mean Corpuscular Volume 108.2 fL (83.0-100.0); Mean Platelet Volume 12.5 fL (9.4-12.4); Platelet Count 114 K/mcL (140-400); Red Blood Count 3.41 M/mcL (3.82-4.97); Red Cell Distribution Width 18.1 % (11.5-14.5); White Blood Count 9.8 K/mcL (4.3-11.1)
[2020-05-15 05:45] LABS: INR 1.7; Prothrombin Time 18.9 Seconds (9.4-12.1)
[2020-05-15 07:10] LABS: BUN/Creatinine Ratio 26 (6-26); Blood Urea Nitrogen 25 mg/dL (8-23); Calcium 9.7 mg/dL (8.6-10.3); Carbon Dioxide 39 mEq/L (23-29); Chloride 92 mEq/L (98-107); Glucose 126 mg/dL (70-105); Osmolality,Calculated 294 (280-300); Potassium 3.9 mEq/L (3.5-5.1); Sodium 139 mEq/L (136-145); eGFR For African Americans > 60 (> 60); eGFR For Non-African Americans 53 (> 60)
[2020-05-15] MEDS: Insulin LISPRO 300 UNITS/3 ML VIAL SQ SCH ×2 (08:32→11:35)
[2020-05-15] MEDS: carvediloL 6.25 MG TABLET PO SCH (08:41)
[2020-05-15] MEDS: Bumetanide 1 MG TABLET PO SCH (08:41)
[2020-05-15] MEDS ORDERED: Aspirin 81 MG TAB.CHEW PO SCH (09:00)
[2020-05-15] MEDS ORDERED: allopurinoL 100 MG TABLET PO SCH (09:00)
[2020-05-15] MEDS: Budesonide/Formoterol 160/4.5 1 PUFF INH IH SCH (10:54)
[2020-05-15 11:05] VITALS: BP 123/79
[2020-05-16] MEDS ORDERED: metOLazone 2.5 MG TABLET PO SCH (16:27)
== END 2020-05-15 15:58 | disposition home health service (06) ==
LOC: 2ANU 16:37 → EMEROOARM 16:37 → 2ANU 19:27
PROVIDERS: ADMIT Student in an Organized Health Care Education/Training Program; ATTEND Student in an Organized Health Care Education/Training Program